=== PATIENT | female | born 1945 | race Caucasian/White ===

== ENCOUNTER 2017-03-12 17:34 | Emergency (ER) | payer MEDICARE ==
[2017-03-12 19:41] LABS: ADD MAN DIFF? NO
[2017-03-12 19:43] LABS: BASO # 0.1 x10^3/uL (0.0-0.2); BASO % 1 % (0-3); EOS % 1 % (0-3); HEMATOCRIT 44.6 % (36.0-47.0); LYMPH # 3.5 x10^3/uL (1.0-4.8); LYMPH % 24 % (24-48); MEAN CORPUSCULAR HEMOGLOBIN 30 pg (25-35); MEAN CORPUSCULAR HGB CONC 34 g/dL (31-37); MEAN CORPUSCULAR VOLUME 91 fL (79-100); MONO % 8 % (0-9); NEUT % 65 % (31-73); PLATELET COUNT 512 x10^3/uL (140-400); RED BLOOD COUNT 4.92 x10^6/uL (3.50-5.40); RED CELL DISTRIBUTION WIDTH 14.6 % (11.5-14.5); WHITE BLOOD COUNT 14.6 x10^3/uL (4.0-11.0)
[2017-03-12 20:05] LABS: BLOOD UREA NITROGEN 16 mg/dL (7-20); CALCIUM 9.3 mg/dL (8.5-10.1); GLUCOSE 116 mg/dL (70-99)
[2017-03-12 20:06] LABS: ANION GAP 16 (6-14); BUN/CREATININE RATIO 16 (6-20); CARBON DIOXIDE 29 mmol/L (21-32); CHLORIDE 98 mmol/L (98-107); GFR 54.3; POTASSIUM 3.2 mmol/L (3.5-5.1); SODIUM 143 mmol/L (136-145)
[2017-03-12 20:11] LABS: ALBUMIN 3.4 g/dL (3.4-5.0); ALBUMIN/GLOBULIN RATIO 0.7 (1.0-1.7); ALK PHOS 77 U/L (46-116); ALT (SGPT) 48 U/L (14-59); AST (SGOT) 67 U/L (15-37); MAGNESIUM 1.8 mg/dL (1.8-2.4); TOTAL BILIRUBIN 0.8 mg/dL (0.2-1.0)
[2017-03-12 20:17] LABS: TROPONINI < 0.017 ng/mL (0.000-0.055)
[2017-03-12 20:24] LABS: PLT ESTIMATE INCREASED (ADEQUATE)
== END 2017-03-12 21:05 | disposition home or self-care (01) ==
LOC: ER 17:34
DX: G45.9 Transient cerebral ischemic attack, unspecified (principal); I10 Essential (primary) hypertension; K21.9 Gastro-esophageal reflux disease without esophagitis; Z88.8 Allergy status to other drugs, medicaments and biological substances
CPT/HCPCS: 36415; 70450; 80053; 83735; 84484; 85025; 93005; 99285-25

== ENCOUNTER 2019-01-11 12:01 | Inpatient (IN) | payer MEDICARE ==
[~2019-01-11] VITALS: Ht 144.8 cm; Wt 68.0 kg
[~2019-01-11 12:01] MED LIST: ASPI-482 PO; ASPI325T8 PO; ATOR20TA PO; ATOR20TA58 PO; CEFU250T59 PO; CHOL10003 PO; CLOP75TA PO; CYAN-25 PO; FAMO40TA57 PO; FLUT9.9S NS; HYDR12.575 PO; LACT1CAP2 PO; LEVO500T59 PO; LORA0.5T PO; MELA3TAB56 PO; SERT25TA PO; SERT50TA PO
[2019-01-11] MEDS ORDERED: IV NORMAL SALINE 1000ML BAG 1,000 ML IV SCH (13:06)
[2019-01-11] MEDS ORDERED: ONDANSETRON PF 4 MG/2 ML VIAL. IV ONE (13:15)
[2019-01-11] MEDS ORDERED: fentaNYL PF VIAL 100 MCG/2 ML VIAL IV PRN (13:15)
[2019-01-11 13:56] LABS: BILIRUBIN,URINE SMALL (NEG); CLARITY,URINE CLEAR; COLOR,URINE AMBER; NITRITE,URINE NEGATIVE (NEG); PROTEIN,URINE NEGATIVE (NEG-TRACE)
--- NOTE | 2019-01-11 14:05 | RAD ---
CT ABDOMEN PELVIS WO CONTRAST History: Bilateral flank pain. Technique: Noncontrast examination of the abdomen and pelvis. Coronal and sagittal reconstructions were performed. Exposure: One or more of the following individualized dose reduction techniques were utilized for this examination: 1. Automated exposure control 2. Adjustment of the mA and/or kV according to patient size 3. Use of iterative reconstruction technique. Comparison: None Findings: Lower chest: No consolidation or pleural effusion. Abdomen and pelvis: The liver, spleen, and adrenal glands have normal noncontrast appearance. Right renal hypodensity, likely cyst. Right inferior renal cortical defect, may relate to prior infarct or infection. No hydronephrosis. Decreased attenuation of the regions of the pancreatic neck and body, may indicate edema. Minimal adjacent fat infiltration. No fluid collection. Colonic diverticulosis. No evidence of diverticulitis. Normal appendix. No evidence of bowel obstruction. No pathologic adenopathy. No ascites. Ectasia of the infrarenal abdominal aorta. No aneurysm. Atheromatous calcification. Bones: No pathologic osseous lesions. Multilevel lumbar spondylosis. Right renal hypodensity, likely cyst. Impression: 1. Hypoattenuation involving portions of the pancreatic neck and body, may indicate edema related to pancreatitis. Recommend correlation with lipase and follow-up. 2. Colonic diverticulosis. Electronically signed by: Artis Alvarez DO (01/11/2019 2:02 PM) [facility]
[2019-01-11 14:13] LABS: BACTERIA,URINE MANY /HPF (0-FEW); HYALINE CASTS, URINE MODERATE /HPF; RBC,URINE 0 /HPF (0-2); SQUAMOUS EPITHELIAL CELL,UR MOD /LPF; WBC,URINE >40 /HPF (0-4)
--- NOTE | 2019-01-11 14:16 | PHYS DOC ---
Past Medical History Past Medical History: Anxiety, CVA, Depression, GERD, Hypertension, TIA Past Surgical History: Cholecystectomy, Tubal ligation Alcohol Use: None Drug Use: None Adult General Chief Complaint Chief Complaint: FLANK PAIN HPI HPI Patient is a 73-year-old female who presents with complaint of lower back as well as bilateral flank pain. Patient has also been having an increase in weakness. Patient's daughter indicates that she has noticed that patient's urine has a very foul odor to it. She also indicates that patient's symptoms seem very consistent with when she has a urinary tract infection and is dehydrated. Patient's weakness is gotten to the point where she had fallen out of her wheelchair yesterday. She denies any injuries however. Patient denies any nausea or vomiting. She also denies any diarrhea.[] Review of Systems Review of Systems Constitutional: Denies fever or chills [] Respiratory: Denies cough or shortness of breath [] Cardiovascular: No additional information not addressed in HPI [] GI: Denies abdominal pain, nausea, vomiting or diarrhea [] : Denies dysuria or hematuria. Complains of bilateral flank pain [] Musculoskeletal: Complains of lower back pain [] Integument: Denies rash or skin lesions [] Neurologic: Denies headache, focal weakness or sensory changes [] All other systems were reviewed and found to be within normal limits, except as documented in this note. Current Medications Current Medications Current Medications Medications (Trade) Dose Ordered Sig/John Start Time Stop Time Status Last Admin Dose Admin Ceftriaxone Sodium (Rocephin) 1 gm 1X ONCE 01/11/19 15:00 01/11/19 15:01 DC 01/11/19 15:09 1 GM Fentanyl Citrate (Fentanyl 2ml Vial) 25 mcg PRN Q15MIN PRN 01/11/19 13:15 01/12/19 13:14 01/11/19 13:39 25 MCG Ondansetron HCl (Zofran) 4 mg 1X ONCE 01/11/19 13:15 01/11/19 13:16 DC 01/11/19 13:39 4 MG Sodium Chloride 1,000 ml @ 1,000 mls/hr Q1H 01/11/19 13:06 01/11/19 14:05 DC 01/11/19 13:40 1,000 MLS/HR Allergies Allergies Allergies Coded Allergies Type Severity Reaction Last Updated Verified zolpidem Allergy Intermediate 03/04/17 Yes I S O L A T I O N *CONTACT* Allergy Unknown 09/26/18 Yes Physical Exam Physical Exam Constitutional: Well developed, well nourished, no acute distress, non-toxic appearance. [] HENT: Normocephalic, atraumatic, bilateral external ears normal, oropharynx moist, no oral exudates, nose normal. [] Eyes: PERRLA, EOMI, conjunctiva normal, no discharge. [] Neck: Normal range of motion, no tenderness, supple, no stridor. [] Cardiovascular: Regular rate and rhythm[] Lungs & Thorax: Bilateral breath sounds clear to auscultation [] Abdomen: Bowel sounds normal, soft, with suprapubic tenderness. [] Skin: Warm, dry, no erythema, no rash. [] Extremities: No tenderness, no cyanosis, no clubbing, ROM intact. [] Neurologic: Alert and oriented X 3, no focal deficits noted. [] Current Patient Data Vital Signs Vital Signs Date Time Temp Pulse Resp B/P (MAP) Pulse Ox O2 Delivery O2 Flow Rate FiO2 01/11/19 14:30 62 16 160/93 (115) 96 Room Air 01/11/19 13:10 98.2 98.2 Lab Values Laboratory Tests Test 01/11/19 13:50 01/11/19 14:18 Urine Collection Type U cath Urine Color Jayne Urine Clarity Clear Urine pH 6.0 Urine Specific Hubbell 1.020 Urine Protein Negative mg/dL (NEG-TRACE) Urine Glucose (UA) Negative mg/dL (NEG) Urine Ketones (Stick) Negative mg/dL (NEG) Urine Blood Moderate (NEG) Urine Nitrite Negative (NEG) Urine Bilirubin Small (NEG) Urine Urobilinogen Dipstick 1.0 mg/dL (0.2 mg/dL) Urine Leukocyte Esterase Moderate (NEG) Urine RBC 0 /HPF (0-2) Urine WBC >40 /HPF (0-4) Urine Squamous Epithelial Cells Mod /LPF Urine Bacteria Many /HPF (0-FEW) Urine Hyaline Casts Moderate /HPF Urine Mucus Marked /LPF White Blood Count 14.4 x10^3/uL (4.0-11.0) H Red Blood Count 4.42 x10^6/uL (3.50-5.40) Hemoglobin 13.5 g/dL (12.0-15.5) Hematocrit 40.2 % (36.0-47.0) Mean Corpuscular Volume 91 fL (79-100) Mean Corpuscular Hemoglobin 31 pg (25-35) Mean Corpuscular Hemoglobin Concent 34 g/dL (31-37) Red Cell Distribution Width 14.0 % (11.5-14.5) Platelet Count 280 x10^3/uL (140-400) Neutrophils (%) (Auto) 68 % (31-73) Lymphocytes (%) (Auto) 23 % (24-48) L Monocytes (%) (Auto) 8 % (0-9) Eosinophils (%) (Auto) 1 % (0-3) Basophils (%) (Auto) 1 % (0-3) Neutrophils # (Auto) 9.8 x10^3/uL (1.8-7.7) H Lymphocytes # (Auto) 3.2 x10^3/uL (1.0-4.8) Monocytes # (Auto) 1.1 x10^3/uL (0.0-1.1) Eosinophils # (Auto) 0.2 x10^3/uL (0.0-0.7) Basophils # (Auto) 0.1 x10^3/uL (0.0-0.2) Sodium Level 142 mmol/L (136-145) Potassium Level 3.1 mmol/L (3.5-5.1) L Chloride Level 104 mmol/L (98-107) Carbon Dioxide Level 31 mmol/L (21-32) Anion Gap 7 (6-14) Blood Urea Nitrogen 10 mg/dL (7-20) Creatinine 0.8 mg/dL (0.6-1.0) Estimated GFR (Cockcroft-Gault) 70.1 BUN/Creatinine Ratio 13 (6-20) Glucose Level 90 mg/dL (70-99) Calcium Level 8.8 mg/dL (8.5-10.1) Total Bilirubin 0.9 mg/dL (0.2-1.0) Aspartate Amino Transferase (AST) 25 U/L (15-37) Alanine Aminotransferase (ALT) 8 U/L (14-59) L Alkaline Phosphatase 53 U/L (46-116) Total Protein 7.1 g/dL (6.4-8.2) Albumin 2.8 g/dL (3.4-5.0) L Albumin/Globulin Ratio 0.7 (1.0-1.7) L Lipase 43 U/L (73-393) L Laboratory Tests 01/11/19 14:18 Laboratory Tests 01/11/19 14:18 EKG EKG [] Radiology/Procedures Radiology/Procedures [] Impressions: PROCEDURE: CT ABDOMEN PELVIS WO CONTRAST CT ABDOMEN PELVIS WO CONTRAST History: Bilateral flank pain. Technique: Noncontrast examination of the abdomen and pelvis. Coronal and sagittal reconstructions were performed. Exposure: One or more of the following individualized dose reduction techniques were utilized for this examination: 1. Automated exposure control 2. Adjustment of the mA and/or kV according to patient size 3. Use of iterative reconstruction technique. Comparison: None Findings: Lower chest: No consolidation or pleural effusion. Abdomen and pelvis: The liver, spleen, and adrenal glands have normal noncontrast appearance. Right renal hypodensity, likely cyst. Right inferior renal cortical defect, may relate to prior infarct or infection. No hydronephrosis. Decreased attenuation of the regions of the pancreatic neck and body, may indicate edema. Minimal adjacent fat infiltration. No fluid collection. Colonic diverticulosis. No evidence of diverticulitis. Normal appendix. No evidence of bowel obstruction. No pathologic adenopathy. No ascites. Ectasia of the infrarenal abdominal aorta. No aneurysm. Atheromatous calcification. Bones: No pathologic osseous lesions. Multilevel lumbar spondylosis. Right renal hypodensity, likely cyst. Impression: 1. Hypoattenuation involving portions of the pancreatic neck and body, may indicate edema related to pancreatitis. Recommend correlation with lipase and follow-up. 2. Colonic diverticulosis. Electronically signed by: Artis Perera DO (01/11/2019 2:02 PM) [facility] DICTATED and SIGNED BY: ARTIS PERERA DO DATE: 01/11/19 140 Course & Med Decision Making Course & Med Decision Making Pertinent Labs and Imaging studies reviewed. (See chart for details) [] Dragon Disclaimer Dragon Disclaimer This electronic medical record was generated, in whole or in part, using a voice recognition dictation system. Departure Departure Impression: Primary Impression: UTI (urinary tract infection) Additional Impressions: Dehydration Generalized weakness Disposition: ADMITTED INPATIENT Admitting Physician: GUANACO ([facility]) Condition: IMPROVED Referrals: SHON PEREZ MD (PCP) Problem Qualifiers Primary Impression: UTI (urinary tract infection) Urinary tract infection type: site unspecified Hematuria presence: with hematuria Qualified Codes: N39.0 - Urinary tract infection, site not specified; R31.9 - Hematuria, unspecified SHANICE MONTAÑO Jr. DO Jan 11, 2019 14:16
[2019-01-11 14:33] LABS: BASO # 0.1 x10^3/uL (0.0-0.2); BASO % 1 % (0-3); EOS # 0.2 x10^3/uL (0.0-0.7); EOS % 1 % (0-3); HEMATOCRIT 40.2 % (36.0-47.0); HEMOGLOBIN 13.5 g/dL (12.0-15.5); LYMPH # 3.2 x10^3/uL (1.0-4.8); LYMPH % 23 % (24-48); MEAN CORPUSCULAR HEMOGLOBIN 31 pg (25-35); MEAN CORPUSCULAR HGB CONC 34 g/dL (31-37); MEAN CORPUSCULAR VOLUME 91 fL (79-100); MONO # 1.1 x10^3/uL (0.0-1.1); MONO % 8 % (0-9); NEUT # 9.8 x10^3/uL (1.8-7.7); NEUT % 68 % (31-73); PLATELET COUNT 280 x10^3/uL (140-400); RED BLOOD COUNT 4.42 x10^6/uL (3.50-5.40); WHITE BLOOD COUNT 14.4 x10^3/uL (4.0-11.0)
[2019-01-11 14:43] LABS: CALCIUM 8.8 mg/dL (8.5-10.1); CREATININE 0.8 mg/dL (0.6-1.0); GFR 70.1; POTASSIUM 3.1 mmol/L (3.5-5.1)
[2019-01-11 14:55] LABS: ALBUMIN 2.8 g/dL (3.4-5.0); ALBUMIN/GLOBULIN RATIO 0.7 (1.0-1.7); TOTAL BILIRUBIN 0.9 mg/dL (0.2-1.0); TOTAL PROTEIN 7.1 g/dL (6.4-8.2)
[2019-01-11] MEDS ORDERED: cefTRIAXone IV Push 1 GM VIAL. IVP ONE (15:00)
--- NOTE | 2019-01-11 15:21 | PDOC1 ---
History and Physical Date of Admission Date of Admission DATE: 01/11/19 TIME: 15:19 Identification/Chief Complaint Chief Complaint SEEN IN ER , 73-year-old female who presents with complaint of lower back as well as bilateral flank pain. Patient has also been having an increase in weakness. Patient's daughter indicates that she has noticed that patient's urine has a very foul odor to it. She also indicates that patient's symptoms seem very consistent with when she has a urinary tract infection and is dehydrated. Patient's weakness is gotten to the point where she had fall, noninjury , out of her wheelchair yesterday. STARTED ON IV ROCEPHIN IN ER, IV FLUIDS ORDERED/ PT/OT Past Medical History Past Medical History Past Medical History Past Medical History Past Medical History: Anxiety, CVA, Depression, GERD, Hypertension, TIA Past Surgical History: Cholecystectomy, Tubal ligation Alcohol Use: None Drug Use: None FHX OBESITY Cardiovascular: HTN, Hyperlipidemia Pulmonary: No pertinent hx CENTRAL NERVOUS SYSTEM: CVA, TIA GI: GERD Heme/Onc: No pertinent hx Hepatobiliary: No pertinent hx Psych: Anxiety, Depression Rheumatologic: No pertinent hx Infectious disease: No pertinent hx Renal/: UTI, Urinary Incontinence Endocrine: No pertinent hx Past Surgical History Past Surgical History: Cholecystectomy, Tubal Ligation Family History Family History: Hypertension, Other Social History Smoke: No ALCOHOL: none Drugs: None Current Medications Current Medications Current Medications Fentanyl Citrate (Fentanyl 2ml Vial) 25 mcg PRN Q15MIN PRN IV PAIN GREATER THAN 3/10 Last administered on 01/11/19at 13:39; Start 01/11/19 at 13:15; Stop 01/12/19 at 13:14 Sodium Chloride 1,000 ml @ 1,000 mls/hr Q1H IV Last administered on 01/11/19at 13:40; Start 01/11/19 at 13:06; Stop 01/11/19 at 14:05; Status DC Ondansetron HCl (Zofran) 4 mg 1X ONCE IV Last administered on 01/11/19at 13: 39; Start 01/11/19 at 13:15; Stop 01/11/19 at 13:16; Status DC Ceftriaxone Sodium (Rocephin) 1 gm 1X ONCE IVP Last administered on 01/11/19at 15:09; Start 01/11/19 at 15:00; Stop 01/11/19 at 15:01; Status DC Active Scripts Active Cefuroxime (Cefuroxime Axetil) 250 Mg Tablet 250 Mg PO 3X/WEEK 30 Days MWF weekly for UTI prevention Levaquin (Levofloxacin) 500 Mg Tablet 500 Mg PO Q24H 4 Days Lorazepam 0.5 Mg Tablet 1 Tab PO PRN QHS PRN 6 Days Pepcid (Famotidine) 40 Mg Tablet 40 Mg PO HS Aspirin 325 Mg Tablet 1 Tab PO DAILY Atorvastatin Calcium 20 Mg Tablet 20 Mg PO QHS Reported Zoloft (Sertraline Hcl) 50 Mg Tablet 1 Tab PO DAILY Acidophilus (Lactobacillus Acidophilus) 1 Each Capsule 1 Each PO DAILY Vitamin D3 (Cholecalciferol (Vitamin D3)) 1,000 Unit Tablet 2 Tab PO DAILY Vitamin B-12 (Cyanocobalamin (Vitamin B-12)) 1,000 Mcg Tablet 1 Tab PO DAILY Melatonin 3 Mg Tablet 1 Tab PO QHS Zoloft (Sertraline Hcl) 25 Mg Tablet 1 Tab PO DAILY Clopidogrel (Clopidogrel Bisulfate) 75 Mg Tablet 1 Tab PO DAILY Flonase Allergy Relief (Fluticasone Propionate) 9.9 Ml [place].susp 2 Sprays NS DAILY Allergies Allergies: Coded Allergies: zolpidem (Verified Allergy, Intermediate, 03/04/17) Odd behavior, confusion next day I S O L A T I O N *CONTACT* (Verified Allergy, Unknown, 09/26/18) mrsa ROS Review of System Review of Systems Review of Systems Constitutional: Denies fever or chills [] Respiratory: Denies cough or shortness of breath [] Cardiovascular: No additional information not addressed in HPI [] GI: Denies abdominal pain, nausea, vomiting or diarrhea [] : Denies dysuria or hematuria. Complains of bilateral flank pain [] Musculoskeletal: Complains of lower back pain [] Integument: Denies rash or skin lesions [] Neurologic: Denies headache, focal weakness or sensory changes [] 14 pt systems were reviewed and found to be within normal limits, except as documented Neurological: Yes Gait Disturbance Physical Exam Physical Exam Physical Exam Physical Exam Constitutional: Well developed, well nourished, no acute distress, non-toxic appearance. [] HENT: Normocephalic, atraumatic, bilateral external ears normal, oropharynx moist, no oral exudates, nose normal. [] Eyes: PERRLA, EOMI, conjunctiva normal, no discharge. [] Neck: Normal range of motion, no tenderness, supple, no stridor. [] Cardiovascular: Regular rate and rhythm[] Lungs & Thorax: Bilateral breath sounds clear to auscultation [] Abdomen: Bowel sounds normal, soft, with suprapubic tenderness. [] Skin: Warm, dry, no erythema, no rash. [] Extremities: No tenderness, no cyanosis, no clubbing, ROM intact. [] Neurologic: Alert and oriented X 3, no focal deficits noted. [] General: Alert, Oriented X3, Cooperative, No acute distress HEENT: Mucous membr. moist/pink Lungs: Clear to auscultation, Normal air movement Heart: RRR, no gallops Breasts: Not examined Abdomen: Soft Rectal Exam: not examined PELVIC: Examination not indicated Extremities: No cyanosis Neuro: Normal speech, Cranial nerves 3-12 NL Psych/Mental Status: Mental status NL, Mood NL Vitals Vitals Vital Signs Date Time Temp Pulse Resp B/P (MAP) Pulse Ox O2 Delivery O2 Flow Rate FiO2 01/11/19 14:30 62 16 160/93 (115) 96 Room Air 01/11/19 13:10 98.2 98.2 Labs Labs Laboratory Tests Test 01/11/19 13:50 01/11/19 14:18 Urine Collection Type U cath Urine Color Jayne Urine Clarity Clear Urine pH 6.0 Urine Specific Bivins 1.020 Urine Protein Negative mg/dL (NEG-TRACE) Urine Glucose (UA) Negative mg/dL (NEG) Urine Ketones (Stick) Negative mg/dL (NEG) Urine Blood Moderate (NEG) Urine Nitrite Negative (NEG) Urine Bilirubin Small (NEG) Urine Urobilinogen Dipstick 1.0 mg/dL (0.2 mg/dL) Urine Leukocyte Esterase Moderate (NEG) Urine RBC 0 /HPF (0-2) Urine WBC >40 /HPF (0-4) Urine Squamous Epithelial Cells Mod /LPF Urine Bacteria Many /HPF (0-FEW) Urine Hyaline Casts Moderate /HPF Urine Mucus Marked /LPF White Blood Count 14.4 x10^3/uL (4.0-11.0) Red Blood Count 4.42 x10^6/uL (3.50-5.40) Hemoglobin 13.5 g/dL (12.0-15.5) Hematocrit 40.2 % (36.0-47.0) Mean Corpuscular Volume 91 fL (79-100) Mean Corpuscular Hemoglobin 31 pg (25-35) Mean Corpuscular Hemoglobin Concent 34 g/dL (31-37) Red Cell Distribution Width 14.0 % (11.5-14.5) Platelet Count 280 x10^3/uL (140-400) Neutrophils (%) (Auto) 68 % (31-73) Lymphocytes (%) (Auto) 23 % (24-48) Monocytes (%) (Auto) 8 % (0-9) Eosinophils (%) (Auto) 1 % (0-3) Basophils (%) (Auto) 1 % (0-3) Neutrophils # (Auto) 9.8 x10^3/uL (1.8-7.7) Lymphocytes # (Auto) 3.2 x10^3/uL (1.0-4.8) Monocytes # (Auto) 1.1 x10^3/uL (0.0-1.1) Eosinophils # (Auto) 0.2 x10^3/uL (0.0-0.7) Basophils # (Auto) 0.1 x10^3/uL (0.0-0.2) Sodium Level 142 mmol/L (136-145) Potassium Level 3.1 mmol/L (3.5-5.1) Chloride Level 104 mmol/L (98-107) Carbon Dioxide Level 31 mmol/L (21-32) Anion Gap 7 (6-14) Blood Urea Nitrogen 10 mg/dL (7-20) Creatinine 0.8 mg/dL (0.6-1.0) Estimated GFR (Cockcroft-Gault) 70.1 BUN/Creatinine Ratio 13 (6-20) Glucose Level 90 mg/dL (70-99) Calcium Level 8.8 mg/dL (8.5-10.1) Total Bilirubin 0.9 mg/dL (0.2-1.0) Aspartate Amino Transf (AST/SGOT) 25 U/L (15-37) Alanine Aminotransferase (ALT/SGPT) 8 U/L (14-59) Alkaline Phosphatase 53 U/L (46-116) Total Protein 7.1 g/dL (6.4-8.2) Albumin 2.8 g/dL (3.4-5.0) Albumin/Globulin Ratio 0.7 (1.0-1.7) Lipase 43 U/L (73-393) Laboratory Tests Test 01/11/19 13:50 01/11/19 14:18 Urine Collection Type U cath Urine Color Jayne Urine Clarity Clear Urine pH 6.0 Urine Specific Bivins 1.020 Urine Protein Negative mg/dL (NEG-TRACE) Urine Glucose (UA) Negative mg/dL (NEG) Urine Ketones (Stick) Negative mg/dL (NEG) Urine Blood Moderate (NEG) Urine Nitrite Negative (NEG) Urine Bilirubin Small (NEG) Urine Urobilinogen Dipstick 1.0 mg/dL (0.2 mg/dL) Urine Leukocyte Esterase Moderate (NEG) Urine RBC 0 /HPF (0-2) Urine WBC >40 /HPF (0-4) Urine Squamous Epithelial Cells Mod /LPF Urine Bacteria Many /HPF (0-FEW) Urine Hyaline Casts Moderate /HPF Urine Mucus Marked /LPF White Blood Count 14.4 x10^3/uL (4.0-11.0) Red Blood Count 4.42 x10^6/uL (3.50-5.40) Hemoglobin 13.5 g/dL (12.0-15.5) Hematocrit 40.2 % (36.0-47.0) Mean Corpuscular Volume 91 fL (79-100) Mean Corpuscular Hemoglobin 31 pg (25-35) Mean Corpuscular Hemoglobin Concent 34 g/dL (31-37) Red Cell Distribution Width 14.0 % (11.5-14.5) Platelet Count 280 x10^3/uL (140-400) Neutrophils (%) (Auto) 68 % (31-73) Lymphocytes (%) (Auto) 23 % (24-48) Monocytes (%) (Auto) 8 % (0-9) Eosinophils (%) (Auto) 1 % (0-3) Basophils (%) (Auto) 1 % (0-3) Neutrophils # (Auto) 9.8 x10^3/uL (1.8-7.7) Lymphocytes # (Auto) 3.2 x10^3/uL (1.0-4.8) Monocytes # (Auto) 1.1 x10^3/uL (0.0-1.1) Eosinophils # (Auto) 0.2 x10^3/uL (0.0-0.7) Basophils # (Auto) 0.1 x10^3/uL (0.0-0.2) Sodium Level 142 mmol/L (136-145) Potassium Level 3.1 mmol/L (3.5-5.1) Chloride Level 104 mmol/L (98-107) Carbon Dioxide Level 31 mmol/L (21-32) Anion Gap 7 (6-14) Blood Urea Nitrogen 10 mg/dL (7-20) Creatinine 0.8 mg/dL (0.6-1.0) Estimated GFR (Cockcroft-Gault) 70.1 BUN/Creatinine Ratio 13 (6-20) Glucose Level 90 mg/dL (70-99) Calcium Level 8.8 mg/dL (8.5-10.1) Total Bilirubin 0.9 mg/dL (0.2-1.0) Aspartate Amino Transf (AST/SGOT) 25 U/L (15-37) Alanine Aminotransferase (ALT/SGPT) 8 U/L (14-59) Alkaline Phosphatase 53 U/L (46-116) Total Protein 7.1 g/dL (6.4-8.2) Albumin 2.8 g/dL (3.4-5.0) Albumin/Globulin Ratio 0.7 (1.0-1.7) Lipase 43 U/L (73-393) Images Images CT ABDOMEN PELVIS WO CONTRAST History: Bilateral flank pain. Technique: Noncontrast examination of the abdomen and pelvis. Coronal and sagittal reconstructions were performed. Exposure: One or more of the following individualized dose reduction techniques were utilized for this examination: 1. Automated exposure control 2. Adjustment of the mA and/or kV according to patient size 3. Use of iterative reconstruction technique. Comparison: None Findings: Lower chest: No consolidation or pleural effusion. Abdomen and pelvis: The liver, spleen, and adrenal glands have normal noncontrast appearance. Right renal hypodensity, likely cyst. Right inferior renal cortical defect, may relate to prior infarct or infection. No hydronephrosis. Decreased attenuation of the regions of the pancreatic neck and body, may indicate edema. Minimal adjacent fat infiltration. No fluid collection. Colonic diverticulosis. No evidence of diverticulitis. Normal appendix. No evidence of bowel obstruction. No pathologic adenopathy. No ascites. Ectasia of the infrarenal abdominal aorta. No aneurysm. Atheromatous calcification. Bones: No pathologic osseous lesions. Multilevel lumbar spondylosis. Right renal hypodensity, likely cyst. Impression: 1. Hypoattenuation involving portions of the pancreatic neck and body, may indicate edema related to pancreatitis. Recommend correlation with lipase and follow-up. 2. Colonic diverticulosis. Electronically signed by: Zack Perera DO (01/11/2019 2:02 PM) [id number] DICTATED and SIGNED BY: ZACK PERERA DO DATE: 01/11/19 1402 VTE Prophylaxis Ordered VTE Prophylaxis Devices: Yes VTE Pharmacological Prophylaxi: Yes Assessment/Plan Assessment/Plan IMPRESSION UTI DEHYDRATION Colonic diverticulosis. Acute metabolic encephalopathy Extensive suspected remote ischemic changes are identified within bilateral posterior MCA territories as well as the left medial occipital lobe. 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
[2019-01-11] MEDS ORDERED: ALBUTEROL SULFATE 2.5 MG/3 ML NEBU. NEB PRN (16:00)
[2019-01-11] MEDS ORDERED: LORazepam 0.5 MG TABLET PO PRN ×2 (16:00)
[2019-01-11] MEDS ORDERED: MAG HYDROX/ALUMINUM HYD/SIMETH 30 ML ORAL.SUSP PO PRN (16:00)
[2019-01-11] MEDS ORDERED: ACETAMINOPHEN 650 MG/20.3 ML SOLUTION. GT PRN (16:00)
[2019-01-11] MEDS ORDERED: cloNIDine HCL 0.1 MG TABLET PO PRN (16:00)
[2019-01-11] MEDS ORDERED: DOCUSATE SODIUM 100 MG CAPSULE. PO PRN (16:00)
[2019-01-11] MEDS: IV NORMAL SALINE 1000ML BAG 1,000 ML IV SCH ×2 (16:30→17:53)
[2019-01-11] MEDS ORDERED: POTASSIUM CHLORIDE 20 MEQ TABLET.ER. PO ONE (16:30)
[2019-01-11 17:20] VITALS: BP 159/72
[2019-01-11] MEDS: MEROPENEM 500 MG in IV NORMAL SALINE 50ML 50 ML IV SCH ×2 (17:55→21:07)
[2019-01-11 19:20] VITALS: BP 130/76
[2019-01-11] MEDS ORDERED: OMEP20TA8 PO (20:21)
[2019-01-11] MEDS ORDERED: PRAV10TA2 PO (20:21)
[2019-01-11] MEDS ORDERED: folic acid (20:21)
[2019-01-11] MEDS ORDERED: BUSP5TAB PO (20:21)
[2019-01-11] MEDS ORDERED: FAMOTIDINE 20 MG TABLET. PO SCH (21:00)
[2019-01-11] MEDS ORDERED: NON FORMULARY ITEM (Melatonin 1 TAB) PO SCH (21:00)
[2019-01-11] MEDS: ATORVASTATIN CALCIUM 20 MG TABLET PO SCH (21:06)
[2019-01-11] MEDS: LACTOBACILLUS RHAMNOSUS GG 1 CAPSULE. PO SCH (21:06)
[2019-01-11 23:27] VITALS: BP_SYST 134; BP_SYST 144; BP_DIAS 63; BP_DIAS 95
[2019-01-12] MEDS: IV NORMAL SALINE 1000ML BAG 1,000 ML IV SCH ×3 (02:45→08:58)
[2019-01-12 03:23] VITALS: BP 130/61
[2019-01-12 04:23] LABS: BASO % 1 % (0-3); EOS # 0.7 x10^3/uL (0.0-0.7); EOS % 7 % (0-3); HEMATOCRIT 38.4 % (36.0-47.0); HEMOGLOBIN 12.7 g/dL (12.0-15.5); LYMPH # 2.9 x10^3/uL (1.0-4.8); LYMPH % 28 % (24-48); MEAN CORPUSCULAR HEMOGLOBIN 31 pg (25-35); MEAN CORPUSCULAR HGB CONC 33 g/dL (31-37); MEAN CORPUSCULAR VOLUME 92 fL (79-100); MONO % 9 % (0-9); NEUT # 5.7 x10^3/uL (1.8-7.7); NEUT % 56 % (31-73); PLATELET COUNT 267 x10^3/uL (140-400); RED BLOOD COUNT 4.17 x10^6/uL (3.50-5.40); WHITE BLOOD COUNT 10.3 x10^3/uL (4.0-11.0)
[2019-01-12 05:07] LABS: CALCIUM 8.6 mg/dL (8.5-10.1); CREATININE 0.8 mg/dL (0.6-1.0); GFR 70.1; POTASSIUM 3.9 mmol/L (3.5-5.1)
[2019-01-12] MEDS: MEROPENEM 500 MG in IV NORMAL SALINE 50ML 50 ML IV SCH ×4 (05:08→21:19)
[2019-01-12 07:00] VITALS: BP 129/55
[2019-01-12] MEDS ORDERED: MORPHINE SULFATE 2 MG/ML VIAL. IV PRN (08:15)
[2019-01-12] MEDS ORDERED: ONDANSETRON PF 4 MG/2 ML VIAL. IVP PRN (08:15)
[2019-01-12] MEDS ORDERED: TEMAZEPAM 7.5 MG CAPSULE PO PRN (08:15)
[2019-01-12] MEDS ORDERED: ACETAMINOPHEN 500 MG TABLET PO PRN (08:15)
[2019-01-12] MEDS: LACTOBACILLUS RHAMNOSUS GG 1 CAPSULE. PO SCH ×2 (08:53→21:16)
[2019-01-12] MEDS: busPIRone 5 MG TABLET. PO SCH ×2 (08:53→21:16)
[2019-01-12] MEDS: FOLIC ACID 1 MG TABLET. PO SCH (08:53)
[2019-01-12] MEDS: CLOPIDOGREL BISULFATE 75 MG TABLET PO SCH (08:54)
[2019-01-12] MEDS: POTASSIUM CHLORIDE 20 MEQ TABLET.ER. PO SCH (08:54)
[2019-01-12] MEDS: ACETAMINOPHEN/CODEINE 300/30MG TABLET. PO PRN ×2 (08:55→16:32)
[2019-01-12] MEDS: CYANOCOBALAMIN (VITAMIN B-12) 1,000 MCG TABLET. PO SCH (08:55)
[2019-01-12] MEDS: PANTOPRAZOLE 40 MG TABLET.DR. PO SCH (08:55)
[2019-01-12] MEDS: CHOLECALCIFEROL (VITAMIN D3) 1,000 UNIT TABLET PO SCH (08:56)
[2019-01-12] MEDS: ASPIRIN 325 MG TABLET PO SCH (08:56)
[2019-01-12] MEDS: SERTRALINE 50 MG TABLET. PO SCH (08:56)
[2019-01-12] MEDS: FLUTICASONE 50MCG/NASAL SPRAY 16GM BOTTLE. NS SCH (08:57)
[2019-01-12] MEDS: ENOXAPARIN 40 MG/0.4 ML SYRINGE. SQ SCH (08:58)
[2019-01-12] MEDS ORDERED: PRAVASTATIN SODIUM 5 MG PO SCH (09:00)
--- NOTE | 2019-01-12 10:41 | PDOC ---
Infectious Disease Note Vital Sign Vital Signs Vital Signs Date Time Temp Pulse Resp B/P (MAP) Pulse Ox O2 Delivery O2 Flow Rate FiO2 01/12/19 08:55 93 Room Air 01/12/19 07:00 97.9 66 18 129/55 (79) 97.9 Labs Lab Laboratory Tests Test 01/11/19 13:50 01/11/19 14:18 01/12/19 02:45 Urine Collection Type U cath Urine Color Jayne Urine Clarity Clear Urine pH 6.0 Urine Specific [place] 1.020 Urine Protein Negative mg/dL (NEG-TRACE) Urine Glucose (UA) Negative mg/dL (NEG) Urine Ketones (Stick) Negative mg/dL (NEG) Urine Blood Moderate (NEG) Urine Nitrite Negative (NEG) Urine Bilirubin Small (NEG) Urine Urobilinogen Dipstick 1.0 mg/dL (0.2 mg/dL) Urine Leukocyte Esterase Moderate (NEG) Urine RBC 0 /HPF (0-2) Urine WBC >40 /HPF (0-4) Urine Squamous Epithelial Cells Mod /LPF Urine Bacteria Many /HPF (0-FEW) Urine Hyaline Casts Moderate /HPF Urine Mucus Marked /LPF White Blood Count 14.4 x10^3/uL (4.0-11.0) 10.3 x10^3/uL (4.0-11.0) Red Blood Count 4.42 x10^6/uL (3.50-5.40) 4.17 x10^6/uL (3.50-5.40) Hemoglobin 13.5 g/dL (12.0-15.5) 12.7 g/dL (12.0-15.5) Hematocrit 40.2 % (36.0-47.0) 38.4 % (36.0-47.0) Mean Corpuscular Volume 91 fL (79-100) 92 fL (79-100) Mean Corpuscular Hemoglobin 31 pg (25-35) 31 pg (25-35) Mean Corpuscular Hemoglobin Concent 34 g/dL (31-37) 33 g/dL (31-37) Red Cell Distribution Width 14.0 % (11.5-14.5) 14.0 % (11.5-14.5) Platelet Count 280 x10^3/uL (140-400) 267 x10^3/uL (140-400) Neutrophils (%) (Auto) 68 % (31-73) 56 % (31-73) Lymphocytes (%) (Auto) 23 % (24-48) 28 % (24-48) Monocytes (%) (Auto) 8 % (0-9) 9 % (0-9) Eosinophils (%) (Auto) 1 % (0-3) 7 % (0-3) Basophils (%) (Auto) 1 % (0-3) 1 % (0-3) Neutrophils # (Auto) 9.8 x10^3/uL (1.8-7.7) 5.7 x10^3/uL (1.8-7.7) Lymphocytes # (Auto) 3.2 x10^3/uL (1.0-4.8) 2.9 x10^3/uL (1.0-4.8) Monocytes # (Auto) 1.1 x10^3/uL (0.0-1.1) 1.0 x10^3/uL (0.0-1.1) Eosinophils # (Auto) 0.2 x10^3/uL (0.0-0.7) 0.7 x10^3/uL (0.0-0.7) Basophils # (Auto) 0.1 x10^3/uL (0.0-0.2) 0.0 x10^3/uL (0.0-0.2) Sodium Level 142 mmol/L (136-145) 146 mmol/L (136-145) Potassium Level 3.1 mmol/L (3.5-5.1) 3.9 mmol/L (3.5-5.1) Chloride Level 104 mmol/L (98-107) 110 mmol/L (98-107) Carbon Dioxide Level 31 mmol/L (21-32) 27 mmol/L (21-32) Anion Gap 7 (6-14) 9 (6-14) Blood Urea Nitrogen 10 mg/dL (7-20) 10 mg/dL (7-20) Creatinine 0.8 mg/dL (0.6-1.0) 0.8 mg/dL (0.6-1.0) Estimated GFR (Cockcroft-Gault) 70.1 70.1 BUN/Creatinine Ratio 13 (6-20) Glucose Level 90 mg/dL (70-99) 90 mg/dL (70-99) Calcium Level 8.8 mg/dL (8.5-10.1) 8.6 mg/dL (8.5-10.1) Total Bilirubin 0.9 mg/dL (0.2-1.0) Aspartate Amino Transf (AST/SGOT) 25 U/L (15-37) Alanine Aminotransferase (ALT/SGPT) 8 U/L (14-59) Alkaline Phosphatase 53 U/L (46-116) Total Protein 7.1 g/dL (6.4-8.2) Albumin 2.8 g/dL (3.4-5.0) Albumin/Globulin Ratio 0.7 (1.0-1.7) Lipase 43 U/L (73-393) Objective Assessment UTI - POA 01/11 - h/o MDR in September recent Cipro Leukocytosis - better HTN H/o MRSA H/o CVA Plan Plan of Care Cont Meropenem but to q 6 F/u labs and cults May benefit from topical vaginal estrogen Would benefit from outpatient Urology rola D/w daughter Thank you # [phone] ESTUARDO CONTI MD Jan 12, 2019 10:41
--- NOTE | 2019-01-12 10:44 | PDOC ---
PROGRESS NOTES Chief Complaint Chief Complaint Recuurent UTI ( ec yany) Urinary retention, in high likelihood Colonic diverticulosis. Acute metabolic encephalopathy, in the background of UTI< resolved POA Extensive suspected remote ischemic changes are identified within bilateral posterior MCA territories as well as the left medial occipital lobe. 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 marco a heard of daily suppressive doses abx but not 3x.week PT OT Ok to eat LIpase normal - CT mentions atrophied pancreas she looks good BLADDER SCAN PROTOCOL - retention likely culprit for her freq uti's (she doesnt self cath) Vitals Vitals Vital Signs Date Time Temp Pulse Resp B/P (MAP) Pulse Ox O2 Delivery O2 Flow Rate FiO2 01/12/19 10:04 93 Room Air 01/12/19 07:00 97.9 66 18 129/55 (79) 97.9 Physical Exam General: Alert, Oriented X3, Cooperative, No acute distress Heart: Regular rate, Normal S1, Normal S2, No murmurs Lungs: Clear Abdomen: Normal bowel sounds, Soft, No tenderness Extremities: No clubbing, No cyanosis, No edema Skin: No rashes, No breakdown, No significant lesion Labs LABS Laboratory Tests Test 01/11/19 13:50 01/11/19 14:18 01/12/19 02:45 Urine Collection Type U cath Urine Color Jayne Urine Clarity Clear Urine pH 6.0 Urine Specific [place] 1.020 Urine Protein Negative mg/dL (NEG-TRACE) Urine Glucose (UA) Negative mg/dL (NEG) Urine Ketones (Stick) Negative mg/dL (NEG) Urine Blood Moderate (NEG) Urine Nitrite Negative (NEG) Urine Bilirubin Small (NEG) Urine Urobilinogen Dipstick 1.0 mg/dL (0.2 mg/dL) Urine Leukocyte Esterase Moderate (NEG) Urine RBC 0 /HPF (0-2) Urine WBC >40 /HPF (0-4) Urine Squamous Epithelial Cells Mod /LPF Urine Bacteria Many /HPF (0-FEW) Urine Hyaline Casts Moderate /HPF Urine Mucus Marked /LPF White Blood Count 14.4 x10^3/uL (4.0-11.0) 10.3 x10^3/uL (4.0-11.0) Red Blood Count 4.42 x10^6/uL (3.50-5.40) 4.17 x10^6/uL (3.50-5.40) Hemoglobin 13.5 g/dL (12.0-15.5) 12.7 g/dL (12.0-15.5) Hematocrit 40.2 % (36.0-47.0) 38.4 % (36.0-47.0) Mean Corpuscular Volume 91 fL (79-100) 92 fL (79-100) Mean Corpuscular Hemoglobin 31 pg (25-35) 31 pg (25-35) Mean Corpuscular Hemoglobin Concent 34 g/dL (31-37) 33 g/dL (31-37) Red Cell Distribution Width 14.0 % (11.5-14.5) 14.0 % (11.5-14.5) Platelet Count 280 x10^3/uL (140-400) 267 x10^3/uL (140-400) Neutrophils (%) (Auto) 68 % (31-73) 56 % (31-73) Lymphocytes (%) (Auto) 23 % (24-48) 28 % (24-48) Monocytes (%) (Auto) 8 % (0-9) 9 % (0-9) Eosinophils (%) (Auto) 1 % (0-3) 7 % (0-3) Basophils (%) (Auto) 1 % (0-3) 1 % (0-3) Neutrophils # (Auto) 9.8 x10^3/uL (1.8-7.7) 5.7 x10^3/uL (1.8-7.7) Lymphocytes # (Auto) 3.2 x10^3/uL (1.0-4.8) 2.9 x10^3/uL (1.0-4.8) Monocytes # (Auto) 1.1 x10^3/uL (0.0-1.1) 1.0 x10^3/uL (0.0-1.1) Eosinophils # (Auto) 0.2 x10^3/uL (0.0-0.7) 0.7 x10^3/uL (0.0-0.7) Basophils # (Auto) 0.1 x10^3/uL (0.0-0.2) 0.0 x10^3/uL (0.0-0.2) Sodium Level 142 mmol/L (136-145) 146 mmol/L (136-145) Potassium Level 3.1 mmol/L (3.5-5.1) 3.9 mmol/L (3.5-5.1) Chloride Level 104 mmol/L (98-107) 110 mmol/L (98-107) Carbon Dioxide Level 31 mmol/L (21-32) 27 mmol/L (21-32) Anion Gap 7 (6-14) 9 (6-14) Blood Urea Nitrogen 10 mg/dL (7-20) 10 mg/dL (7-20) Creatinine 0.8 mg/dL (0.6-1.0) 0.8 mg/dL (0.6-1.0) Estimated GFR (Cockcroft-Gault) 70.1 70.1 BUN/Creatinine Ratio 13 (6-20) Glucose Level 90 mg/dL (70-99) 90 mg/dL (70-99) Calcium Level 8.8 mg/dL (8.5-10.1) 8.6 mg/dL (8.5-10.1) Total Bilirubin 0.9 mg/dL (0.2-1.0) Aspartate Amino Transf (AST/SGOT) 25 U/L (15-37) Alanine Aminotransferase (ALT/SGPT) 8 U/L (14-59) Alkaline Phosphatase 53 U/L (46-116) Total Protein 7.1 g/dL (6.4-8.2) Albumin 2.8 g/dL (3.4-5.0) Albumin/Globulin Ratio 0.7 (1.0-1.7) Lipase 43 U/L (73-393) Review of Systems Review of Systems neg 14 pt reviewed with her Assessment and Plan Assessmemt and Plan Problems Medical Problems: (1) Dehydration Status: Acute (2) Generalized weakness Status: Acute Comment Review of Relevant I have reviewed the following items eryn (where applicable) has been applied. Labs Laboratory Tests Test 01/11/19 13:50 01/11/19 14:18 01/12/19 02:45 Urine Collection Type U cath Urine Color Jayne Urine Clarity Clear Urine pH 6.0 Urine Specific [place] 1.020 Urine Protein Negative mg/dL (NEG-TRACE) Urine Glucose (UA) Negative mg/dL (NEG) Urine Ketones (Stick) Negative mg/dL (NEG) Urine Blood Moderate (NEG) Urine Nitrite Negative (NEG) Urine Bilirubin Small (NEG) Urine Urobilinogen Dipstick 1.0 mg/dL (0.2 mg/dL) Urine Leukocyte Esterase Moderate (NEG) Urine RBC 0 /HPF (0-2) Urine WBC >40 /HPF (0-4) Urine Squamous Epithelial Cells Mod /LPF Urine Bacteria Many /HPF (0-FEW) Urine Hyaline Casts Moderate /HPF Urine Mucus Marked /LPF White Blood Count 14.4 x10^3/uL (4.0-11.0) 10.3 x10^3/uL (4.0-11.0) Red Blood Count 4.42 x10^6/uL (3.50-5.40) 4.17 x10^6/uL (3.50-5.40) Hemoglobin 13.5 g/dL (12.0-15.5) 12.7 g/dL (12.0-15.5) Hematocrit 40.2 % (36.0-47.0) 38.4 % (36.0-47.0) Mean Corpuscular Volume 91 fL (79-100) 92 fL (79-100) Mean Corpuscular Hemoglobin 31 pg (25-35) 31 pg (25-35) Mean Corpuscular Hemoglobin Concent 34 g/dL (31-37) 33 g/dL (31-37) Red Cell Distribution Width 14.0 % (11.5-14.5) 14.0 % (11.5-14.5) Platelet Count 280 x10^3/uL (140-400) 267 x10^3/uL (140-400) Neutrophils (%) (Auto) 68 % (31-73) 56 % (31-73) Lymphocytes (%) (Auto) 23 % (24-48) 28 % (24-48) Monocytes (%) (Auto) 8 % (0-9) 9 % (0-9) Eosinophils (%) (Auto) 1 % (0-3) 7 % (0-3) Basophils (%) (Auto) 1 % (0-3) 1 % (0-3) Neutrophils # (Auto) 9.8 x10^3/uL (1.8-7.7) 5.7 x10^3/uL (1.8-7.7) Lymphocytes # (Auto) 3.2 x10^3/uL (1.0-4.8) 2.9 x10^3/uL (1.0-4.8) Monocytes # (Auto) 1.1 x10^3/uL (0.0-1.1) 1.0 x10^3/uL (0.0-1.1) Eosinophils # (Auto) 0.2 x10^3/uL (0.0-0.7) 0.7 x10^3/uL (0.0-0.7) Basophils # (Auto) 0.1 x10^3/uL (0.0-0.2) 0.0 x10^3/uL (0.0-0.2) Sodium Level 142 mmol/L (136-145) 146 mmol/L (136-145) Potassium Level 3.1 mmol/L (3.5-5.1) 3.9 mmol/L (3.5-5.1) Chloride Level 104 mmol/L (98-107) 110 mmol/L (98-107) Carbon Dioxide Level 31 mmol/L (21-32) 27 mmol/L (21-32) Anion Gap 7 (6-14) 9 (6-14) Blood Urea Nitrogen 10 mg/dL (7-20) 10 mg/dL (7-20) Creatinine 0.8 mg/dL (0.6-1.0) 0.8 mg/dL (0.6-1.0) Estimated GFR (Cockcroft-Gault) 70.1 70.1 BUN/Creatinine Ratio 13 (6-20) Glucose Level 90 mg/dL (70-99) 90 mg/dL (70-99) Calcium Level 8.8 mg/dL (8.5-10.1) 8.6 mg/dL (8.5-10.1) Total Bilirubin 0.9 mg/dL (0.2-1.0) Aspartate Amino Transf (AST/SGOT) 25 U/L (15-37) Alanine Aminotransferase (ALT/SGPT) 8 U/L (14-59) Alkaline Phosphatase 53 U/L (46-116) Total Protein 7.1 g/dL (6.4-8.2) Albumin 2.8 g/dL (3.4-5.0) Albumin/Globulin Ratio 0.7 (1.0-1.7) Lipase 43 U/L (73-393) Laboratory Tests Test 01/11/19 13:50 01/11/19 14:18 01/12/19 02:45 Urine Collection Type U cath Urine Color Jayne Urine Clarity Clear Urine pH 6.0 Urine Specific [place] 1.020 Urine Protein Negative mg/dL (NEG-TRACE) Urine Glucose (UA) Negative mg/dL (NEG) Urine Ketones (Stick) Negative mg/dL (NEG) Urine Blood Moderate (NEG) Urine Nitrite Negative (NEG) Urine Bilirubin Small (NEG) Urine Urobilinogen Dipstick 1.0 mg/dL (0.2 mg/dL) Urine Leukocyte Esterase Moderate (NEG) Urine RBC 0 /HPF (0-2) Urine WBC >40 /HPF (0-4) Urine Squamous Epithelial Cells Mod /LPF Urine Bacteria Many /HPF (0-FEW) Urine Hyaline Casts Moderate /HPF Urine Mucus Marked /LPF White Blood Count 14.4 x10^3/uL (4.0-11.0) 10.3 x10^3/uL (4.0-11.0) Red Blood Count 4.42 x10^6/uL (3.50-5.40) 4.17 x10^6/uL (3.50-5.40) Hemoglobin 13.5 g/dL (12.0-15.5) 12.7 g/dL (12.0-15.5) Hematocrit 40.2 % (36.0-47.0) 38.4 % (36.0-47.0) Mean Corpuscular Volume 91 fL (79-100) 92 fL (79-100) Mean Corpuscular Hemoglobin 31 pg (25-35) 31 pg (25-35) Mean Corpuscular Hemoglobin Concent 34 g/dL (31-37) 33 g/dL (31-37) Red Cell Distribution Width 14.0 % (11.5-14.5) 14.0 % (11.5-14.5) Platelet Count 280 x10^3/uL (140-400) 267 x10^3/uL (140-400) Neutrophils (%) (Auto) 68 % (31-73) 56 % (31-73) Lymphocytes (%) (Auto) 23 % (24-48) 28 % (24-48) Monocytes (%) (Auto) 8 % (0-9) 9 % (0-9) Eosinophils (%) (Auto) 1 % (0-3) 7 % (0-3) Basophils (%) (Auto) 1 % (0-3) 1 % (0-3) Neutrophils # (Auto) 9.8 x10^3/uL (1.8-7.7) 5.7 x10^3/uL (1.8-7.7) Lymphocytes # (Auto) 3.2 x10^3/uL (1.0-4.8) 2.9 x10^3/uL (1.0-4.8) Monocytes # (Auto) 1.1 x10^3/uL (0.0-1.1) 1.0 x10^3/uL (0.0-1.1) Eosinophils # (Auto) 0.2 x10^3/uL (0.0-0.7) 0.7 x10^3/uL (0.0-0.7) Basophils # (Auto) 0.1 x10^3/uL (0.0-0.2) 0.0 x10^3/uL (0.0-0.2) Sodium Level 142 mmol/L (136-145) 146 mmol/L (136-145) Potassium Level 3.1 mmol/L (3.5-5.1) 3.9 mmol/L (3.5-5.1) Chloride Level 104 mmol/L (98-107) 110 mmol/L (98-107) Carbon Dioxide Level 31 mmol/L (21-32) 27 mmol/L (21-32) Anion Gap 7 (6-14) 9 (6-14) Blood Urea Nitrogen 10 mg/dL (7-20) 10 mg/dL (7-20) Creatinine 0.8 mg/dL (0.6-1.0) 0.8 mg/dL (0.6-1.0) Estimated GFR (Cockcroft-Gault) 70.1 70.1 BUN/Creatinine Ratio 13 (6-20) Glucose Level 90 mg/dL (70-99) 90 mg/dL (70-99) Calcium Level 8.8 mg/dL (8.5-10.1) 8.6 mg/dL (8.5-10.1) Total Bilirubin 0.9 mg/dL (0.2-1.0) Aspartate Amino Transf (AST/SGOT) 25 U/L (15-37) Alanine Aminotransferase (ALT/SGPT) 8 U/L (14-59) Alkaline Phosphatase 53 U/L (46-116) Total Protein 7.1 g/dL (6.4-8.2) Albumin 2.8 g/dL (3.4-5.0) Albumin/Globulin Ratio 0.7 (1.0-1.7) Lipase 43 U/L (73-393) Medications Current Medications Fentanyl Citrate (Fentanyl 2ml Vial) 25 mcg PRN Q15MIN PRN IV PAIN GREATER THAN 3/10 Last administered on 01/11/19at 13:39; Start 01/11/19 at 13:15; Stop at 10:40; Status DC Sodium Chloride 1,000 ml @ 1,000 mls/hr Q1H IV Last administered on 01/11/19at 13:40; Start 01/11/19 at 13:06; Stop 01/11/19 at 14:05; Status DC Ondansetron HCl (Zofran) 4 mg 1X ONCE IV Last administered on 01/11/19at 13:3 9; Start 01/11/19 at 13:15; Stop 01/11/19 at 13:16; Status DC Ceftriaxone Sodium (Rocephin) 1 gm 1X ONCE IVP Last administered on 01/11/19at 15:09; Start 01/11/19 at 15:00; Stop 01/11/19 at 15:01; Status DC Sodium Chloride 1,000 ml @ 125 mls/hr Q8H IV Last administered on 01/12/19at 08:58; Start 01/11/19 at 15:24; Stop 01/12/19 at 15:23 Ceftriaxone Sodium (Rocephin) 1 gm Q24H IVP ; Start 01/12/19 at 15:00; Stop 01/11/19 at 16:05; Status DC Potassium Chloride (Klor-Con) 40 meq 1X ONCE PO Last administered on 01/11/19at 16:29; Start 01/11/19 at 16:30; Stop 01/11/19 at 16:31; Status DC Potassium Chloride (Klor-Con) 20 meq DAILYWBKFT PO Last administered on 01/12/19at 08:54; Start 01/12/19 at 08:00 Sodium Chloride 1,000 ml @ 100 mls/hr Q10H IV Last administered on 01/12/19at 02:45; Start 01/11/19 at 16:30 Acetaminophen (Tylenol) 650 mg PRN Q4HRS PRN GT TEMP OVER 100.4F OR MILD PAIN; Start 01/11/19 at 16:00 Al Hydroxide/Mg Hydroxide (Mylanta Plus Xs) 30 ml PRN DAILY PRN PO HEARTBURN / GAS; Start 01/11/19 at 16:00 Clonidine HCl (Catapres) 0.1 mg PRN Q6HRS PRN PO SBP>160 OR DBP>90; Start 01/11/19 at 16:00 Docusate Sodium (Colace) 100 mg PRN BID PRN PO CONSTIPATION; Start 01/11/19 at 16:00 Albuterol Sulfate (Ventolin Neb Soln) 2.5 mg PRN Q4HRS PRN NEB SHORTNESS OF BREATH; Start 01/11/19 at 16:00 Lorazepam (Ativan) 0.5 mg PRN Q4HRS PRN PO ANXIETY / AGITATION; Start 01/11/19 at 16:00 Enoxaparin Sodium (Lovenox 40mg Syringe) 40 mg DAILY SQ Last administered on 01/12/19at 08:58; Start 01/12/19 at 09:00 Aspirin (Thu Aspirin) 325 mg DAILY PO Last administered on 01/12/19at 08:56; Start 01/12/19 at 09:00 Atorvastatin Calcium (Lipitor) 20 mg QHS PO Last administered on 01/11/19at 21:06; Start 01/11/19 at 21:00 Vitamin D (Vitamin D3) 2,000 unit DAILY PO Last administered on 01/12/19at 08:56; Start 01/12/19 at 09:00 Clopidogrel Bisulfate (Plavix) 75 mg DAILY PO Last administered on 01/12/19 08:54; Start 01/12/19 at 09:00 Cyanocobalamin (Vitamin B-12) 1,000 mcg DAILY PO Last administered on 01/12/19 08:55; Start 01/12/19 at 09:00 Lorazepam (Ativan) 0.5 mg PRN QHS PRN PO ANXIETY / AGITATION; Start 01/11/19 at 16:00 Sertraline HCl (Zoloft) 50 mg DAILY PO Last administered on 01/12/19 08:56; Start 01/12/19 at 09:00 Famotidine (Pepcid) 20 mg QHS PO Last administered on 01/11/19at 21:06; Start 01/11/19 at 21:00; Stop 01/12/19 at 08:14; Status DC Fluticasone Propionate (Flonase) 2 spray DAILY NS Last administered on 01/12/19 08:57; Start 01/12/19 at 09:00 Lactobacillus Rhamnosus (Culturelle) 1 cap BID PO Last administered on 01/12/19 08:53; Start 01/11/19 at 21:00 Non-Formulary Medication (Melatonin ) 1 tab QHS PO ; Start 01/11/19 at 21:00; Status UNV Meropenem 500 mg/ Sodium Chloride 50 ml @ 100 mls/hr Q8HRS IV Last administered on 01/12/19at 05:08; Start 01/11/19 at 17:00 Acetaminophen (Tylenol) 500 mg PRN Q6HRS PRN PO HEADACHE/ TEMP; Start 01/12/19 at 08:15 Acetaminophen/ Codeine Phosphate (Tylenol #3) 1 tab PRN Q6HRS PRN PO PAIN MILD TO MOD Last administered on 01/12/19at 08:55; Start 01/12/19 at 08:15 Temazepam (Restoril) 7.5 mg PRN QHS PRN PO INSOMNIA; Start 01/12/19 at 08:15 Ondansetron HCl (Zofran) 4 mg PRN Q6HRS PRN IVP NAUSEA/VOMITING; Start 01/12/19 at 08:15 Morphine Sulfate (Morphine Sulfate) 1 mg PRN Q2HR PRN IV PAIN; Start 01/12/19 at 08:15 Buspirone HCl (Buspar) 5 mg BID PO Last administered on 01/12/19at 08:53; St art 01/12/19 at 09:00 Pantoprazole Sodium (Protonix) 40 mg DAILYAC PO Last administered on 01/12/19at 08:55; Start 01/12/19 at 09:00 Non-Formulary Medication (Pravastatin Sodium ) 5 mg DAILY PO ; Start 01/12/19 at 09:00; Stop 01/12/19 at 08:13; Status DC Folic Acid (Folic Acid) 1 mg DAILY PO Last administered on 01/12/19at 08:53; Start 01/12/19 at 09:00 Active Scripts Active Cefuroxime (Cefuroxime Axetil) 250 Mg Tablet 250 Mg PO 3X/WEEK 30 Days MWF weekly for UTI prevention Aspirin 325 Mg Tablet 1 Tab PO DAILY Reported Pravastatin Sodium 10 Mg Tablet 5 Mg PO DAILY Omeprazole 20 Mg Tablet.dr 1 Tab PO DAILY [folic acid] 1 Mg DAILY Buspirone Hcl 5 Mg Tablet 1 Tab PO BID Acidophilus (Lactobacillus Acidophilus) 1 Each Capsule 1 Each PO DAILY Vitamin D3 (Cholecalciferol (Vitamin D3)) 1,000 Unit Tablet 2 Tab PO DAILY Vitamin B-12 (Cyanocobalamin (Vitamin B-12)) 1,000 Mcg Tablet 1 Tab PO DAILY Melatonin 3 Mg Tablet 1 Tab PO QHS Zoloft (Sertraline Hcl) 25 Mg Tablet 1 Tab PO DAILY Clopidogrel (Clopidogrel Bisulfate) 75 Mg Tablet 1 Tab PO DAILY Vitals/I & O Vital Sign - Last 24 Hours 01/11/19 01/11/19 01/11/19 01/11/19 13:00 13:10 13:39 14:30 Temp 98.2 98.2 Pulse 72 72 62 Resp 16 16 14 16 B/P (MAP) 189/89 (122) 189/89 (122) 160/93 (115) Pulse Ox 93 93 96 96 O2 Delivery Room Air Room Air Room Air Room Air 01/11/19 01/11/19 01/11/19 01/11/19 15:06 15:36 16:06 16:36 Pulse 62 62 64 61 Resp 16 16 16 16 B/P (MAP) 135/65 (88) 141/74 (96) 160/92 (114) 142/106 (118) Pulse Ox 91 93 93 93 O2 Delivery Room Air Room Air Room Air Room Air 01/11/19 01/11/19 01/11/19 01/11/19 17:20 19:20 19:55 23:27 Temp 97.7 98.5 98.3 97.7 98.5 98.3 Pulse 65 66 70 Resp 18 18 18 B/P (MAP) 159/72 (101) 130/76 (94) 134/63 (86) Pulse Ox 98 95 96 O2 Delivery Room Air Room Air Room Air Room Air 01/12/19 01/12/19 01/12/19 01/12/19 03:23 07:00 07:57 08:55 Temp 98.5 97.9 98.5 97.9 Pulse 68 66 Resp 18 18 B/P (MAP) 130/61 (84) 129/55 (79) Pulse Ox 93 97 93 O2 Delivery Room Air Room Air Room Air Room Air 01/12/19 10:04 Pulse Ox 93 O2 Delivery Room Air l Intake and Output 01/11/19 01/11/19 01/12/19 15:00 23:00 07:00 Intake Total 480 ml Balance 480 ml TRINA GREEN MD Jan 12, 2019 10:44
[2019-01-12 11:00] VITALS: BP 116/64
--- NOTE | 2019-01-12 12:08 | CONS ---
DATE OF CONSULTATION: 01/12/2019 LOCATION: The patient's room is 412. REQUESTING PHYSICIAN: Dr. Rivera. REASON FOR CONSULTATION: History of drug resistant UTI. HISTORY OF PRESENT ILLNESS: The patient is a 73-year-old female with a history of previous stroke. Also, has had recurrent urinary tract infections. Back in September she grew out both Proteus as well as an Enterobacter and was fairly resistant. She does live by herself. Daughter states she went to see her primary care physician a week or two ago and was diagnosed with a UTI at that point and was taking ciprofloxacin what they believe. Last Saturday, she was doing well without any complications; however, while at home, she developed some low back pain, which has been chronic in nature, but it does worsen when she gets urinary tract infection. She had increasing weakness to the point where she had a difficulty getting off the couch and subsequently kind of slipped down to the floor. She was brought to [facility] Urine was noted to have a foul, strong odor. She did have a white blood cell count of 14.4 on arrival. Urinalysis was concerning for urinary tract infection. She underwent an abdominal CT as well as pelvis without contrast, it showed some hypoattenuation involving portions of the pancreatic neck; however, she had normal lipase and she also has some colonic diverticulosis. She was given a dose of ceftriaxone, but this was discontinued and she was started on meropenem q. 8 hours. Currently, the patient is sitting in a chair. She is feeling better. She denies having any fevers or chills or sweats. No nausea or vomiting prior to her admission. Currently, she has no shortness of air, no chest pain. No rashes. Denies any trauma. PAST MEDICAL HISTORY: Positive for previous urinary tract infections, also has a history of MRSA screen positivity, history of hypertension, hyperlipidemia, TIA, gastroesophageal reflux disease. PAST SURGICAL HISTORY: Positive for cataract surgery, cholecystectomy, tubal ligation, carpal tunnel release, pulmonary nodule, history of obesity, previous aphasia. REVIEW OF SYSTEMS: Otherwise negative. ALLERGIES: LISTED IN CHART. REVIEW OF SYSTEMS: Otherwise negative. SOCIAL HISTORY: She is . No pets. No alcohol or tobacco. Does have a very supportive family. FAMILY HISTORY: Noncontributory. CURRENT MEDICATIONS: Include meropenem q. 8. She is on albuterol, aspirin, Lipitor, BuSpar, did get the Rocephin. She is on Plavix, Pepcid, Lovenox, folic acid, Zoloft, Restoril. Other meds are available, have been reviewed in the chart. PHYSICAL EXAMINATION: VITAL SIGNS: She is afebrile, temperature 98.5, pulse 66, respirations 18, blood pressure 130/76, blood pressure was as high as 189/89. CONSTITUTIONAL: She is sitting in a chair. She is cooperative. She is in no acute distress. HEENT: Pupils are status post cataract surgery. Oral cavity, pharynx is dry. NECK: Supple. Good range of motion. LUNGS: Clear to auscultation. HEART: S1, S2. ABDOMEN: Soft, nontender, no guarding, no rebound. EXTREMITIES: Without clubbing, cyanosis nor edema. NEUROLOGIC: She answers questions. PSYCHIATRIC: Affect is pleasant. LABORATORY DATA: White count 14.4 on arrival, today 10.3, hemoglobin 12.7, platelets of 267, neutrophils 56, lymphs 28. Creatinine of 0.8. Normal liver function study tests. Urinalysis is concerning for urinary tract infection. Radiology reviewed in history of present illness. IMPRESSION: 1. Urinary tract infection present on admission with a history of multiple drug resistance, bacteria in her urine previously. 2. Leukocytosis, better. 3. Hypertension. 4. History of methicillin-resistant Staphylococcus aureus. 5. History of cerebrovascular accident. RECOMMENDATIONS: For now, continue meropenem, but increase to 500 q. 6. Follow up labs and cultures. May benefit from topical vaginal estrogens and would benefit from outpatient Urology evaluation. This was discussed with daughter. Thank you to participate in patient's care. If you have any questions, please do not hesitate to contact me. ESTUARDO CONTI MD DR: GINI/nithya JOB#: [id number] / [id number] GUDELIA
--- NOTE | 2019-01-12 12:57 | NUR ---
SW following for discharge planning. Chart reviewed, discussed with RN. Pt is on Meropenem currently. PT/OT recommending home with home health. SW to meet with pt to discuss home health options. RN does not anticipate pt will discharge home today. SW will continue to follow.
--- NOTE | 2019-01-12 13:17 | NUR ---
IP: patient has hx of +MRSA screen, requires contact precautions until 2 negative results 7 days apart.
[2019-01-12 15:00] VITALS: BP 118/39
[2019-01-12] MEDS ORDERED: cefTRIAXone IV Push 1 GM VIAL. IVP SCH (15:00)
[2019-01-12 19:00] VITALS: BP 105/61
[2019-01-12] MEDS: ATORVASTATIN CALCIUM 20 MG TABLET PO SCH (21:16)
[2019-01-12 23:00] VITALS: BP 166/75
[2019-01-13 03:29] VITALS: BP 111/51
[2019-01-13 04:00] LABS: BASO # 0.1 x10^3/uL (0.0-0.2); BASO % 1 % (0-3); EOS # 0.7 x10^3/uL (0.0-0.7); EOS % 7 % (0-3); HEMATOCRIT 35.5 % (36.0-47.0); HEMOGLOBIN 11.9 g/dL (12.0-15.5); LYMPH # 2.7 x10^3/uL (1.0-4.8); LYMPH % 27 % (24-48); MEAN CORPUSCULAR HEMOGLOBIN 31 pg (25-35); MEAN CORPUSCULAR HGB CONC 34 g/dL (31-37); MEAN CORPUSCULAR VOLUME 91 fL (79-100); MONO # 0.8 x10^3/uL (0.0-1.1); MONO % 8 % (0-9); NEUT # 5.6 x10^3/uL (1.8-7.7); NEUT % 56 % (31-73); PLATELET COUNT 272 x10^3/uL (140-400); RED BLOOD COUNT 3.89 x10^6/uL (3.50-5.40); WHITE BLOOD COUNT 9.9 x10^3/uL (4.0-11.0)
[2019-01-13 04:09] LABS: CALCIUM 8.7 mg/dL (8.5-10.1); CREATININE 0.8 mg/dL (0.6-1.0); GFR 70.1; POTASSIUM 3.7 mmol/L (3.5-5.1)
[2019-01-13] MEDS: MEROPENEM 500 MG in IV NORMAL SALINE 50ML 50 ML IV SCH ×5 (05:58→23:30)
[2019-01-13 07:00] VITALS: BP 121/64
[2019-01-13] MEDS: LACTOBACILLUS RHAMNOSUS GG 1 CAPSULE. PO SCH ×2 (08:08→21:20)
[2019-01-13] MEDS: CYANOCOBALAMIN (VITAMIN B-12) 1,000 MCG TABLET. PO SCH (08:08)
[2019-01-13] MEDS: POTASSIUM CHLORIDE 20 MEQ TABLET.ER. PO SCH (08:08)
[2019-01-13] MEDS: busPIRone 5 MG TABLET. PO SCH ×2 (08:08→21:20)
[2019-01-13] MEDS: CHOLECALCIFEROL (VITAMIN D3) 1,000 UNIT TABLET PO SCH (08:08)
[2019-01-13] MEDS: PANTOPRAZOLE 40 MG TABLET.DR. PO SCH (08:09)
[2019-01-13] MEDS: ASPIRIN 325 MG TABLET PO SCH (08:09)
[2019-01-13] MEDS: FOLIC ACID 1 MG TABLET. PO SCH (08:09)
[2019-01-13] MEDS: CLOPIDOGREL BISULFATE 75 MG TABLET PO SCH (08:09)
[2019-01-13] MEDS: SERTRALINE 50 MG TABLET. PO SCH (08:09)
[2019-01-13] MEDS: ENOXAPARIN 40 MG/0.4 ML SYRINGE. SQ SCH (08:09)
[2019-01-13] MEDS: FLUTICASONE 50MCG/NASAL SPRAY 16GM BOTTLE. NS SCH (08:09)
--- NOTE | 2019-01-13 09:40 | PDOC ---
PROGRESS NOTES Chief Complaint Chief Complaint Recuurent UTI ( ec yany) Urinary retention, in high likelihood Colonic diverticulosis. Acute metabolic encephalopathy, in the background of UTI< resolved POA Extensive suspected remote ischemic changes are identified within bilateral posterior MCA territories as well as the left medial occipital lobe. 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 OBESITY hypokalemia- replaced History of Present Illness History of Present Illness ID HAS INCREASED FREQ OF MERREM TO q6 FROM Q8 NO complaints, she is back to baseline with mentation AGreeable only to existing HH VOding freely - on bladder scan protocol Earlier Entry: BAck to normal in [place] Dtr at bedside, relays to me pt was put on 3x/week suppressive abx by colleague for recurrent UTI UTI on UA Multiple episodes UTI in a yr ATe well, PLAN merrem q6 AWAIT URINE C and S PT OT existing HH on dc Ok to eat LIpase normal - CT mentions atrophied pancreas she looks good BLADDER SCAN PROTOCOL - retention likely culprit for her freq uti's (she doesnt self cath) Vitals Vitals Vital Signs Date Time Temp Pulse Resp B/P (MAP) Pulse Ox O2 Delivery O2 Flow Rate FiO2 01/13/19 07:00 97.9 66 18 121/64 (83) 97 Room Air 97.9 Physical Exam General: Alert, Oriented X3, Cooperative, No acute distress Heart: Regular rate, Normal S1, Normal S2, No murmurs Lungs: Clear Abdomen: Normal bowel sounds, Soft, No tenderness Extremities: No clubbing, No cyanosis, No edema Skin: No rashes, No breakdown, No significant lesion Labs LABS Laboratory Tests Test 01/13/19 03:30 White Blood Count 9.9 x10^3/uL (4.0-11.0) Red Blood Count 3.89 x10^6/uL (3.50-5.40) Hemoglobin 11.9 g/dL (12.0-15.5) Hematocrit 35.5 % (36.0-47.0) Mean Corpuscular Volume 91 fL (79-100) Mean Corpuscular Hemoglobin 31 pg (25-35) Mean Corpuscular Hemoglobin Concent 34 g/dL (31-37) Red Cell Distribution Width 14.0 % (11.5-14.5) Platelet Count 272 x10^3/uL (140-400) Neutrophils (%) (Auto) 56 % (31-73) Lymphocytes (%) (Auto) 27 % (24-48) Monocytes (%) (Auto) 8 % (0-9) Eosinophils (%) (Auto) 7 % (0-3) Basophils (%) (Auto) 1 % (0-3) Neutrophils # (Auto) 5.6 x10^3/uL (1.8-7.7) Lymphocytes # (Auto) 2.7 x10^3/uL (1.0-4.8) Monocytes # (Auto) 0.8 x10^3/uL (0.0-1.1) Eosinophils # (Auto) 0.7 x10^3/uL (0.0-0.7) Basophils # (Auto) 0.1 x10^3/uL (0.0-0.2) Sodium Level 144 mmol/L (136-145) Potassium Level 3.7 mmol/L (3.5-5.1) Chloride Level 108 mmol/L (98-107) Carbon Dioxide Level 28 mmol/L (21-32) Anion Gap 8 (6-14) Blood Urea Nitrogen 10 mg/dL (7-20) Creatinine 0.8 mg/dL (0.6-1.0) Estimated GFR (Cockcroft-Gault) 70.1 Glucose Level 101 mg/dL (70-99) Calcium Level 8.7 mg/dL (8.5-10.1) Review of Systems Review of Systems she denies 14 pt reviewed with her Assessment and Plan Assessmemt and Plan Problems Medical Problems: (1) Dehydration Status: Acute (2) Generalized weakness Status: Acute Comment Review of Relevant I have reviewed the following items eryn (where applicable) has been applied. Labs Laboratory Tests Test 01/11/19 13:50 01/11/19 14:18 01/11/19 23:00 01/12/19 02:45 Urine Collection Type U cath Urine Color Jayne Urine Clarity Clear Urine pH 6.0 Urine Specific [place] 1.020 Urine Protein Negative mg/dL (NEG-TRACE) Urine Glucose (UA) Negative mg/dL (NEG) Urine Ketones (Stick) Negative mg/dL (NEG) Urine Blood Moderate (NEG) Urine Nitrite Negative (NEG) Urine Bilirubin Small (NEG) Urine Urobilinogen Dipstick 1.0 mg/dL (0.2 mg/dL) Urine Leukocyte Esterase Moderate (NEG) Urine RBC 0 /HPF (0-2) Urine WBC >40 /HPF (0-4) Urine Squamous Epithelial Cells Mod /LPF Urine Bacteria Many /HPF (0-FEW) Urine Hyaline Casts Moderate /HPF Urine Mucus Marked /LPF White Blood Count 14.4 x10^3/uL (4.0-11.0) 10.3 x10^3/uL (4.0-11.0) Red Blood Count 4.42 x10^6/uL (3.50-5.40) 4.17 x10^6/uL (3.50-5.40) Hemoglobin 13.5 g/dL (12.0-15.5) 12.7 g/dL (12.0-15.5) Hematocrit 40.2 % (36.0-47.0) 38.4 % (36.0-47.0) Mean Corpuscular Volume 91 fL (79-100) 92 fL (79-100) Mean Corpuscular Hemoglobin 31 pg (25-35) 31 pg (25-35) Mean Corpuscular Hemoglobin Concent 34 g/dL (31-37) 33 g/dL (31-37) Red Cell Distribution Width 14.0 % (11.5-14.5) 14.0 % (11.5-14.5) Platelet Count 280 x10^3/uL (140-400) 267 x10^3/uL (140-400) Neutrophils (%) (Auto) 68 % (31-73) 56 % (31-73) Lymphocytes (%) (Auto) 23 % (24-48) 28 % (24-48) Monocytes (%) (Auto) 8 % (0-9) 9 % (0-9) Eosinophils (%) (Auto) 1 % (0-3) 7 % (0-3) Basophils (%) (Auto) 1 % (0-3) 1 % (0-3) Neutrophils # (Auto) 9.8 x10^3/uL (1.8-7.7) 5.7 x10^3/uL (1.8-7.7) Lymphocytes # (Auto) 3.2 x10^3/uL (1.0-4.8) 2.9 x10^3/uL (1.0-4.8) Monocytes # (Auto) 1.1 x10^3/uL (0.0-1.1) 1.0 x10^3/uL (0.0-1.1) Eosinophils # (Auto) 0.2 x10^3/uL (0.0-0.7) 0.7 x10^3/uL (0.0-0.7) Basophils # (Auto) 0.1 x10^3/uL (0.0-0.2) 0.0 x10^3/uL (0.0-0.2) Sodium Level 142 mmol/L (136-145) 146 mmol/L (136-145) Potassium Level 3.1 mmol/L (3.5-5.1) 3.9 mmol/L (3.5-5.1) Chloride Level 104 mmol/L (98-107) 110 mmol/L (98-107) Carbon Dioxide Level 31 mmol/L (21-32) 27 mmol/L (21-32) Anion Gap 7 (6-14) 9 (6-14) Blood Urea Nitrogen 10 mg/dL (7-20) 10 mg/dL (7-20) Creatinine 0.8 mg/dL (0.6-1.0) 0.8 mg/dL (0.6-1.0) Estimated GFR (Cockcroft-Gault) 70.1 70.1 BUN/Creatinine Ratio 13 (6-20) Glucose Level 90 mg/dL (70-99) 90 mg/dL (70-99) Calcium Level 8.8 mg/dL (8.5-10.1) 8.6 mg/dL (8.5-10.1) Total Bilirubin 0.9 mg/dL (0.2-1.0) Aspartate Amino Transf (AST/SGOT) 25 U/L (15-37) Alanine Aminotransferase (ALT/SGPT) 8 U/L (14-59) Alkaline Phosphatase 53 U/L (46-116) Total Protein 7.1 g/dL (6.4-8.2) Albumin 2.8 g/dL (3.4-5.0) Albumin/Globulin Ratio 0.7 (1.0-1.7) Lipase 43 U/L (73-393) Nasal Screen MRSA (PCR) Negative (Negative) Test 01/13/19 03:30 White Blood Count 9.9 x10^3/uL (4.0-11.0) Red Blood Count 3.89 x10^6/uL (3.50-5.40) Hemoglobin 11.9 g/dL (12.0-15.5) Hematocrit 35.5 % (36.0-47.0) Mean Corpuscular Volume 91 fL (79-100) Mean Corpuscular Hemoglobin 31 pg (25-35) Mean Corpuscular Hemoglobin Concent 34 g/dL (31-37) Red Cell Distribution Width 14.0 % (11.5-14.5) Platelet Count 272 x10^3/uL (140-400) Neutrophils (%) (Auto) 56 % (31-73) Lymphocytes (%) (Auto) 27 % (24-48) Monocytes (%) (Auto) 8 % (0-9) Eosinophils (%) (Auto) 7 % (0-3) Basophils (%) (Auto) 1 % (0-3) Neutrophils # (Auto) 5.6 x10^3/uL (1.8-7.7) Lymphocytes # (Auto) 2.7 x10^3/uL (1.0-4.8) Monocytes # (Auto) 0.8 x10^3/uL (0.0-1.1) Eosinophils # (Auto) 0.7 x10^3/uL (0.0-0.7) Basophils # (Auto) 0.1 x10^3/uL (0.0-0.2) Sodium Level 144 mmol/L (136-145) Potassium Level 3.7 mmol/L (3.5-5.1) Chloride Level 108 mmol/L (98-107) Carbon Dioxide Level 28 mmol/L (21-32) Anion Gap 8 (6-14) Blood Urea Nitrogen 10 mg/dL (7-20) Creatinine 0.8 mg/dL (0.6-1.0) Estimated GFR (Cockcroft-Gault) 70.1 Glucose Level 101 mg/dL (70-99) Calcium Level 8.7 mg/dL (8.5-10.1) Laboratory Tests Test 01/13/19 03:30 White Blood Count 9.9 x10^3/uL (4.0-11.0) Red Blood Count 3.89 x10^6/uL (3.50-5.40) Hemoglobin 11.9 g/dL (12.0-15.5) Hematocrit 35.5 % (36.0-47.0) Mean Corpuscular Volume 91 fL (79-100) Mean Corpuscular Hemoglobin 31 pg (25-35) Mean Corpuscular Hemoglobin Concent 34 g/dL (31-37) Red Cell Distribution Width 14.0 % (11.5-14.5) Platelet Count 272 x10^3/uL (140-400) Neutrophils (%) (Auto) 56 % (31-73) Lymphocytes (%) (Auto) 27 % (24-48) Monocytes (%) (Auto) 8 % (0-9) Eosinophils (%) (Auto) 7 % (0-3) Basophils (%) (Auto) 1 % (0-3) Neutrophils # (Auto) 5.6 x10^3/uL (1.8-7.7) Lymphocytes # (Auto) 2.7 x10^3/uL (1.0-4.8) Monocytes # (Auto) 0.8 x10^3/uL (0.0-1.1) Eosinophils # (Auto) 0.7 x10^3/uL (0.0-0.7) Basophils # (Auto) 0.1 x10^3/uL (0.0-0.2) Sodium Level 144 mmol/L (136-145) Potassium Level 3.7 mmol/L (3.5-5.1) Chloride Level 108 mmol/L (98-107) Carbon Dioxide Level 28 mmol/L (21-32) Anion Gap 8 (6-14) Blood Urea Nitrogen 10 mg/dL (7-20) Creatinine 0.8 mg/dL (0.6-1.0) Estimated GFR (Cockcroft-Gault) 70.1 Glucose Level 101 mg/dL (70-99) Calcium Level 8.7 mg/dL (8.5-10.1) Microbiology 01/11/19 Blood Culture - Preliminary, Resulted NO GROWTH AFTER 1 DAY Medications Current Medications Fentanyl Citrate (Fentanyl 2ml Vial) 25 mcg PRN Q15MIN PRN IV PAIN GREATER THAN 3/10 Last administered on 01/11/19at 13:39; Start 01/11/19 at 13:15; Stop 01/12/19 at 10:40; Status DC Sodium Chloride 1,000 ml @ 1,000 mls/hr Q1H IV Last administered on 01/11/19at 13:40; Start 01/11/19 at 13:06; Stop 01/11/19 at 14:05; Status DC Ondansetron HCl (Zofran) 4 mg 1X ONCE IV Last administered on 01/11/19at 13:39; Start 01/11/19 at 13:15; Stop 01/11/19 at 13:16; Status DC Ceftriaxone Sodium (Rocephin) 1 gm 1X ONCE IVP Last administered on 01/11/19at 15:09; Start 01/11/19 at 15:00; Stop 01/11/19 at 15:01; Status DC Sodium Chloride 1,000 ml @ 125 mls/hr Q8H IV Last administered on 01/12/19at 08:58; Start 01/11/19 at 15:24; Stop 01/12/19 at 10:40; Status DC Ceftriaxone Sodium (Rocephin) 1 gm Q24H IVP ; Start 01/12/19 at 15:00; Stop 01/11/19 at 16:05; Status DC Potassium Chloride (Klor-Con) 40 meq 1X ONCE PO Last administered on 01/11/19at 16:29; Start 01/11/19 at 16:30; Stop 01/11/19 at 16:31; Status DC Potassium Chloride (Klor-Con) 20 meq DAILYWBKFT PO Last administered on 01/13/19at 08:08; Start 01/12/19 at 08:00 Sodium Chloride 1,000 ml @ 100 mls/hr Q10H IV Last administered on 01/12/19at 02:45; Start 01/11/19 at 16:30; Stop 01/12/19 at 10:51; Status DC Acetaminophen (Tylenol) 650 mg PRN Q4HRS PRN GT TEMP OVER 100.4F OR MILD PAIN; Start 01/11/19 at 16:00 Al Hydroxide/Mg Hydroxide (Mylanta Plus Xs) 30 ml PRN DAILY PRN PO HEARTBURN / GAS; Start 01/11/19 at 16:00 Clonidine HCl (Catapres) 0.1 mg PRN Q6HRS PRN PO SBP>160 OR DBP>90; Start 01/11/19 at 16:00 Docusate Sodium (Colace) 100 mg PRN BID PRN PO CONSTIPATION; Start 01/11/19 at 16:00 Albuterol Sulfate (Ventolin Neb Soln) 2.5 mg PRN Q4HRS PRN NEB SHORTNESS OF BREATH; Start 01/11/19 at 16:00 Lorazepam (Ativan) 0.5 mg PRN Q4HRS PRN PO ANXIETY / AGITATION; Start 01/11/19 at 16:00 Enoxaparin Sodium (Lovenox 40mg Syringe) 40 mg DAILY SQ Last administered on 01/13/19 08:09; Start 01/12/19 at 09:00 Aspirin (Thu Aspirin) 325 mg DAILY PO Last administered on 01/13/19at 08:09; Start 01/12/19 at 09:00 Atorvastatin Calcium (Lipitor) 20 mg QHS PO Last administered on 01/12/19at 21:16; Start 01/11/19 at 21:00 Vitamin D (Vitamin D3) 2,000 unit DAILY PO Last administered on 01/13/19at 08:08; Start 01/12/19 at 09:00 Clopidogrel Bisulfate (Plavix) 75 mg DAILY PO Last administered on 01/13/19at 08:09; Start 01/12/19 at 09:00 Cyanocobalamin (Vitamin B-12) 1,000 mcg DAILY PO Last administered on 01/13/19at 08:08; Start 01/12/19 at 09:00 Lorazepam (Ativan) 0.5 mg PRN QHS PRN PO ANXIETY / AGITATION; Start 01/11/19 at 16:00; Stop 01/12/19 at 10:46; Status DC Sertraline HCl (Zoloft) 50 mg DAILY PO Last administered on 01/13/19at 08:09; Start 01/12/19 at 09:00 Famotidine (Pepcid) 20 mg QHS PO Last administered on 01/11/19at 21:06; Start 01/11/19 at 21:00; Stop 01/12/19 at 08:14; Status DC Fluticasone Propionate (Flonase) 2 spray DAILY NS Last administered on 01/13/19 08:09; Start 01/12/19 at 09:00 Lactobacillus Rhamnosus (Culturelle) 1 cap BID PO Last administered on 01/13/19at 08:08; Start 01/11/19 at 21:00 Non-Formulary Medication (Melatonin ) 1 tab QHS PO ; Start 01/11/19 at 21:00; Status UNV Meropenem 500 mg/ Sodium Chloride 50 ml @ 100 mls/hr Q8HRS IV Last administered on 01/12/19at 05:08; Start 01/11/19 at 17:00; Stop 01/12/19 at 10:42; Status DC Acetaminophen (Tylenol) 500 mg PRN Q6HRS PRN PO HEADACHE/ TEMP; Start 01/12/19 at 08:15 Acetaminophen/ Codeine Phosphate (Tylenol #3) 1 tab PRN Q6HRS PRN PO PAIN MILD TO MOD Last administered on 01/12/19at 16:32; Start 01/12/19 at 08:15 Temazepam (Restoril) 7.5 mg PRN QHS PRN PO INSOMNIA; Start 01/12/19 at 08:15 Ondansetron HCl (Zofran) 4 mg PRN Q6HRS PRN IVP NAUSEA/VOMITING; Start 01/12/19 at 08:15 Morphine Sulfate (Morphine Sulfate) 1 mg PRN Q2HR PRN IV PAIN; Start 01/12/19 at 08:15 Buspirone HCl (Buspar) 5 mg BID PO Last administered on 01/13/19at 08:08; Start 01/12/19 at 09:00 Pantoprazole Sodium (Protonix) 40 mg DAILYAC PO Last administered on 01/13/19at 08:09; Start 01/12/19 at 09:00 Non-Formulary Medication (Pravastatin Sodium ) 5 mg DAILY PO ; Start 01/12/19 at 09:00; Stop 01/12/19 at 08:13; Status DC Folic Acid (Folic Acid) 1 mg DAILY PO Last administered on 01/13/19at 08:09; Start 01/12/19 at 09:00 Meropenem 500 mg/ Sodium Chloride 50 ml @ 100 mls/hr Q6HRS IV Last administered on 01/13/19at 05:58; Start 01/12/19 at 12:00 Active Scripts Active Cefuroxime (Cefuroxime Axetil) 250 Mg Tablet 250 Mg PO 3X/WEEK 30 Days MWF weekly for UTI prevention Aspirin 325 Mg Tablet 1 Tab PO DAILY Reported Pravastatin Sodium 10 Mg Tablet 5 Mg PO DAILY Omeprazole 20 Mg Tablet.dr 1 Tab PO DAILY [folic acid] 1 Mg DAILY Buspirone Hcl 5 Mg Tablet 1 Tab PO BID Acidophilus (Lactobacillus Acidophilus) 1 Each Capsule 1 Each PO DAILY Vitamin D3 (Cholecalciferol (Vitamin D3)) 1,000 Unit Tablet 2 Tab PO DAILY Vitamin B-12 (Cyanocobalamin (Vitamin B-12)) 1,000 Mcg Tablet 1 Tab PO DAILY Melatonin 3 Mg Tablet 1 Tab PO QHS Zoloft (Sertraline Hcl) 25 Mg Tablet 1 Tab PO DAILY Clopidogrel (Clopidogrel Bisulfate) 75 Mg Tablet 1 Tab PO DAILY Vitals/I & O Vital Sign - Last 24 Hours 01/12/19 01/12/19 01/12/19 01/12/19 10:04 11:00 15:00 16:32 Temp 98.4 97.8 98.4 97.8 Pulse 70 77 Resp 16 18 B/P (MAP) 116/64 (81) 118/39 (65) Pulse Ox 93 95 96 95 O2 Delivery Room Air Room Air Room Air Room Air 01/12/19 01/12/19 01/12/19 01/12/19 17:17 19:00 20:00 23:00 Temp 98.8 98.0 98.8 98.0 Pulse 71 72 Resp 16 18 B/P (MAP) 105/61 (76) 166/75 (105) Pulse Ox 95 97 96 O2 Delivery Room Air Room Air 01/13/19 01/13/19 03:29 07:00 Temp 98.2 97.9 98.2 97.9 Pulse 66 66 Resp 18 18 B/P (MAP) 111/51 (71) 121/64 (83) Pulse Ox 95 97 O2 Delivery Room Air Room Air Intake and Output 01/12/19 01/12/19 01/13/19 15:00 23:00 07:00 Intake Total 320 ml 600 ml Balance 320 ml 600 ml TRINA GREEN MD Jan 13, 2019 09:40
--- NOTE | 2019-01-13 09:51 | PDOC ---
Infectious Disease Note Subjective Subjective Doing ok but still some back pain but better - constipated No F/C/S/N/V/D/SOA. rash ROS ROS o/w neg Vital Sign Vital Signs Vital Signs Date Time Temp Pulse Resp B/P (MAP) Pulse Ox O2 Delivery O2 Flow Rate FiO2 01/13/19 07:00 97.9 66 18 121/64 (83) 97 Room Air 97.9 Physical Exam PHYSICAL EXAM CONSTITUTIONAL: She is sitting bed. She is cooperative. She is in no acute distress. HEENT: Pupils are status post cataract surgery. Oral cavity, pharynx is dry. NECK: Supple. Good range of motion. LUNGS: Clear to auscultation. HEART: S1, S2. ABDOMEN: Soft, nontender, no guarding, no rebound. EXTREMITIES: Without clubbing, cyanosis nor edema. NEUROLOGIC: She answers questions. PSYCHIATRIC: Affect is pleasant PIC- RUE - bruised but clean. Labs Lab Laboratory Tests Test 01/13/19 03:30 White Blood Count 9.9 x10^3/uL (4.0-11.0) Red Blood Count 3.89 x10^6/uL (3.50-5.40) Hemoglobin 11.9 g/dL (12.0-15.5) Hematocrit 35.5 % (36.0-47.0) Mean Corpuscular Volume 91 fL (79-100) Mean Corpuscular Hemoglobin 31 pg (25-35) Mean Corpuscular Hemoglobin Concent 34 g/dL (31-37) Red Cell Distribution Width 14.0 % (11.5-14.5) Platelet Count 272 x10^3/uL (140-400) Neutrophils (%) (Auto) 56 % (31-73) Lymphocytes (%) (Auto) 27 % (24-48) Monocytes (%) (Auto) 8 % (0-9) Eosinophils (%) (Auto) 7 % (0-3) Basophils (%) (Auto) 1 % (0-3) Neutrophils # (Auto) 5.6 x10^3/uL (1.8-7.7) Lymphocytes # (Auto) 2.7 x10^3/uL (1.0-4.8) Monocytes # (Auto) 0.8 x10^3/uL (0.0-1.1) Eosinophils # (Auto) 0.7 x10^3/uL (0.0-0.7) Basophils # (Auto) 0.1 x10^3/uL (0.0-0.2) Sodium Level 144 mmol/L (136-145) Potassium Level 3.7 mmol/L (3.5-5.1) Chloride Level 108 mmol/L (98-107) Carbon Dioxide Level 28 mmol/L (21-32) Anion Gap 8 (6-14) Blood Urea Nitrogen 10 mg/dL (7-20) Creatinine 0.8 mg/dL (0.6-1.0) Estimated GFR (Cockcroft-Gault) 70.1 Glucose Level 101 mg/dL (70-99) Calcium Level 8.7 mg/dL (8.5-10.1) Micro Microbiology 01/11/19 Blood Culture - Preliminary, Resulted NO GROWTH AFTER 1 DAY Objective Assessment UTI - POA 01/11 - h/o MDR in September recent Cipro Leukocytosis - better HTN H/o MRSA H/o CVA Plan Plan of Care Cont Meropenem but to q 6 Miralax F/u labs and cults May benefit from topical vaginal estrogen Would benefit from outpatient Urology rola D/w daughter ESTUARDO CONTI MD Jan 13, 2019 09:51
[2019-01-13 11:00] VITALS: BP 148/54
[2019-01-13] MEDS: POLYETHYLENE GLYCOL 3350 17 GM PACKET. PO SCH (13:45)
--- NOTE | 2019-01-13 14:08 | NUR ---
SW following for discharge planning. Chart reviewed, discussed with RN. Pt on Meropenem Q6. SW met with pt to determine home health agency pt is current with. Pt reported she uses [facility]. SW contacted [facility] (ph: [phone], fax: [phone]) to confirm. Yvon reported pt was receiving home health RN, PT, OT. ADE will fax discharge paperwork upon discharge. ADE will continue to follow for discharge planning.
[2019-01-13 15:00] VITALS: BP 142/58
--- NOTE | 2019-01-13 15:40 | NUR ---
Assumed pt care at this time. Pt in bed watching tv. Denies any needs at this time. Call light within reach. Will continue to monitor.
[2019-01-13 19:20] VITALS: BP 144/82
[2019-01-13] MEDS: ATORVASTATIN CALCIUM 20 MG TABLET PO SCH (21:20)
[2019-01-13 23:30] VITALS: BP 144/65
[2019-01-14 02:58] VITALS: BP 131/74
[2019-01-14] MEDS: MEROPENEM 500 MG in IV NORMAL SALINE 50ML 50 ML IV SCH ×3 (05:50→18:01)
[2019-01-14] MEDS: PANTOPRAZOLE 40 MG TABLET.DR. PO SCH (06:05)
[2019-01-14 07:00] VITALS: BP 147/65
[2019-01-14] MEDS: POLYETHYLENE GLYCOL 3350 17 GM PACKET. PO SCH (09:00)
[2019-01-14] MEDS: FLUTICASONE 50MCG/NASAL SPRAY 16GM BOTTLE. NS SCH (09:31)
[2019-01-14] MEDS: ASPIRIN 325 MG TABLET PO SCH (09:31)
[2019-01-14] MEDS: POTASSIUM CHLORIDE 20 MEQ TABLET.ER. PO SCH (09:32)
[2019-01-14] MEDS: busPIRone 5 MG TABLET. PO SCH ×2 (09:32→21:21)
[2019-01-14] MEDS: CYANOCOBALAMIN (VITAMIN B-12) 1,000 MCG TABLET. PO SCH (09:32)
[2019-01-14] MEDS: LACTOBACILLUS RHAMNOSUS GG 1 CAPSULE. PO SCH ×2 (09:32→21:21)
[2019-01-14] MEDS: CLOPIDOGREL BISULFATE 75 MG TABLET PO SCH (09:32)
[2019-01-14] MEDS: CHOLECALCIFEROL (VITAMIN D3) 1,000 UNIT TABLET PO SCH (09:32)
[2019-01-14] MEDS: FOLIC ACID 1 MG TABLET. PO SCH (09:32)
[2019-01-14] MEDS: SERTRALINE 50 MG TABLET. PO SCH (09:32)
[2019-01-14] MEDS: ENOXAPARIN 40 MG/0.4 ML SYRINGE. SQ SCH (09:33)
--- NOTE | 2019-01-14 09:58 | PDOC ---
Infectious Disease Note Subjective Subjective Doing better - constipation is better No F/C/S/N/V/D/SOA. rash ROS ROS o/w neg Vital Sign Vital Signs Vital Signs Date Time Temp Pulse Resp B/P (MAP) Pulse Ox O2 Delivery O2 Flow Rate FiO2 01/14/19 07:00 98.2 65 16 147/65 (92) 96 Room Air 98.2 Physical Exam PHYSICAL EXAM CONSTITUTIONAL: She is sitting bed. She is cooperative. She is in no acute distress. HEENT: Pupils are status post cataract surgery. Oral cavity, pharynx is dry. NECK: Supple. Good range of motion. LUNGS: Clear to auscultation. HEART: S1, S2. ABDOMEN: Soft, nontender, no guarding, no rebound. EXTREMITIES: Without clubbing, cyanosis nor edema. NEUROLOGIC: She answers questions. PSYCHIATRIC: Affect is pleasant PIC- RUE - bruised but clean. Labs Micro Microbiology 01/11/19 Blood Culture - Preliminary, Resulted NO GROWTH AFTER 1 DAY Objective Assessment GNR UTI - POA 01/11 - h/o MDR in September recent Cipro Leukocytosis - better HTN H/o MRSA H/o CVA Plan Plan of Care Cont Meropenem but to q 6 Hold Miralax F/u labs and cults May benefit from topical vaginal estrogen Would benefit from outpatient Urology eval maybe even [employer]VE[employer]GER D/w [facility] this am - no additional information beyond GNR D/w daughter/granddaughter ESTUARDO CONTI MD Jan 14, 2019 09:58
--- NOTE | 2019-01-14 10:15 | PDOC ---
PROGRESS NOTES Chief Complaint Chief Complaint impression Recuurent UTI ( ec yany) Urinary retention, in high likelihood Colonic diverticulosis. Acute metabolic encephalopathy, in the background of UTI< resolved POA Extensive suspected remote ischemic changes are identified within bilateral posterior MCA territories as well as the left medial occipital lobe. 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 OBESITY hypokalemia- replaced 29 min pt exam, chart review, > 50% of time spent with exam, chart review, pt care coordination History of Present Illness History of Present Illness ID HAS INCREASED FREQ OF MERREM TO q6 FROM Q8 NO complaints, she is back to baseline with mentation AGreeable only to existing HH VOding freely - on bladder scan protocol Earlier Entry: BAck to normal in [place] Dtr at bedside, relays to me pt was put on 3x/week suppressive abx by colleague for recurrent UTI UTI on UA Multiple episodes UTI in a yr ATe well, PLAN merrem q6 AWAIT URINE C and S PT OT existing HH on dc Ok to eat LIpase normal - CT mentions atrophied pancreas she looks good BLADDER SCAN PROTOCOL - retention likely culprit for her freq uti's (she doesnt self cath) Vitals Vitals Vital Signs Date Time Temp Pulse Resp B/P (MAP) Pulse Ox O2 Delivery O2 Flow Rate FiO2 01/14/19 07:00 98.2 65 16 147/65 (92) 96 Room Air 98.2 Physical Exam Physical Exam CONSTITUTIONAL: She is sitting bed. She is cooperative. She is in no acute distress. HEENT: Pupils are status post cataract surgery. Oral cavity, pharynx is dry. NECK: Supple. Good range of motion. LUNGS: Clear to auscultation. HEART: S1, S2. ABDOMEN: Soft, nontender, no guarding, no rebound. EXTREMITIES: Without clubbing, cyanosis nor edema. NEUROLOGIC: She answers questions. PSYCHIATRIC: Affect is pleasant PIC- RUE - bruised but clean. General: Alert, Oriented X3, Cooperative, No acute distress Heart: Regular rate, Normal S1, Normal S2, No murmurs Lungs: Clear Abdomen: Normal bowel sounds, Soft, No tenderness Extremities: No clubbing, No cyanosis, No edema Skin: No rashes, No breakdown, No significant lesion Assessment and Plan Assessmemt and Plan Problems Medical Problems: (1) Dehydration Status: Acute (2) Generalized weakness Status: Acute * Family Other Prior Level of Function Information * Pt states that right knee marisol sometimes but she generally is able to tell when it is going to happen. Pt reports she was receiving home health PT and nearing relaese to amb outside of apt on he own. Dtr assist with laundry and heavy housekeeping, shopping,. Pt reports she has never driven Other Precautions * fall risk Level of Consciousness * Alert Follows Direction * Complex Behavior * Cooperative Safety/Judgement * Decreased Safety * Verbal Cues Required * Due to Strength/ROM Defic * Due to Coordination Defic Communication * WFL Sensation * intact Sensation Location * Left Lower Extremity * Right Lower Extremity Coordination * Gross motor cood. decr. Activity Tolerance * Poor + Activity Tolerance/ Vitals * No signs of distress noted with activity Range of Motion * WFL BLE Strength * RLE grossly 4/5; LLE grossly 3+/5 Sitting Balance * 4+ Moves 1-2" all planes Standing Balance * 2 balances w/ both UEs PT PAIN COMMENTS * no reported pain Rolling Right Assistance Required * Stand-by Assistance * Bedrail Used Supine to Sit Assistance Required * Stand-by Assistance * Bedrail Used Bed Mobility Comments * HOB elevated Transfer Assistance Required * Contact Guard Assist Transfer Type * Sit to Stand Transfer Assistive Device * Roller Walker Transfer Comments * verbal cues for hand placement Ambulation Assistance Required * Contact Guard Assist Ambulation Assistive Device * Roller Walker Ambulation Distance * 70' Gait Impairments * Slow Lissy * Step-To Gait Ambulation Comments * Pt able to complete step through gait with cueing. Pt limited by report of feeling like her knee was going to buckle. Other Information * Pt with limitations in strength, balance, coordination which limit pt indep with functional mobility. Pt would benefit from Bed Mobility For KU Functional Outcomes Tool * Supervision Transfers Bed To Chair For KU Functional Outcomes Tool * Minimal Assistance Gait Walking On Level Surfaces * Minimal Assistance Walking Distances For KU Functional Tool * 51'-100' Number of KU Functional Outcomes Tool Questions Answered * 4 KU Functional Outcomes Tool Score * 4.0 Testing considered to assess G code/modifier * KU Functional Outcomes Patient Stated Goal * Return home Rehab Potential to Achieve Goals * Good Learning Preferences * One-on-One Instruction * Demonstration * Discussion Factors Facilitating Goal Achievement * Motivation level * Supportive caregiver * Prior level of function * Cognition * Response to training Problem List (body system elements) * Impaired fnctnl mobility * Strength * Balance * Age * Coordination * Knowledge-safe techniques Other Problems * Pt with OT at end of session Clinical Presentation * Evolving Evaluation Complexity Level * Moderate Complexity Pt/caregiver agrees with plan of care/goals * Yes Communicated Patient Care With (Name, Title) * Stephani MURILLO; Brittany NGUYỄN Goal 1 - Bed Mobility Assistance Required * Independent Goal 1 Assessment * Appropriate - Continue Goal 2 - Transfers Assistance Required * Independent Goal 2 - Transfer Type * Sit to Stand Goal 2 Assessment * Appropriate - Continue Goal 3 - Ambulation Assistance Required * Independent Goal 3 - Ambulation Distance * 50' Goal 3 - Ambulation Device * Roller Walker Goal 3 Assessment * Appropriate - Continue Treatment Plan * Therapeutic Exercise * Bed Mobility Training * Transfer training * Gait Training * Dynamic Balance Training Frequency of Treatment Expected * 7 visits/week Duration of Treatment Expected * 2 weeks Discharge Recommendations * Home with Assistance * Home with Home Health Discharge Recommendation Comments * Equipment appears in place will continue to assess Comment Review of Relevant I have reviewed the following items eryn (where applicable) has been applied. Labs Laboratory Tests Test 01/13/19 03:30 White Blood Count 9.9 x10^3/uL (4.0-11.0) Red Blood Count 3.89 x10^6/uL (3.50-5.40) Hemoglobin 11.9 g/dL (12.0-15.5) Hematocrit 35.5 % (36.0-47.0) Mean Corpuscular Volume 91 fL (79-100) Mean Corpuscular Hemoglobin 31 pg (25-35) Mean Corpuscular Hemoglobin Concent 34 g/dL (31-37) Red Cell Distribution Width 14.0 % (11.5-14.5) Platelet Count 272 x10^3/uL (140-400) Neutrophils (%) (Auto) 56 % (31-73) Lymphocytes (%) (Auto) 27 % (24-48) Monocytes (%) (Auto) 8 % (0-9) Eosinophils (%) (Auto) 7 % (0-3) Basophils (%) (Auto) 1 % (0-3) Neutrophils # (Auto) 5.6 x10^3/uL (1.8-7.7) Lymphocytes # (Auto) 2.7 x10^3/uL (1.0-4.8) Monocytes # (Auto) 0.8 x10^3/uL (0.0-1.1) Eosinophils # (Auto) 0.7 x10^3/uL (0.0-0.7) Basophils # (Auto) 0.1 x10^3/uL (0.0-0.2) Sodium Level 144 mmol/L (136-145) Potassium Level 3.7 mmol/L (3.5-5.1) Chloride Level 108 mmol/L (98-107) Carbon Dioxide Level 28 mmol/L (21-32) Anion Gap 8 (6-14) Blood Urea Nitrogen 10 mg/dL (7-20) Creatinine 0.8 mg/dL (0.6-1.0) Estimated GFR (Cockcroft-Gault) 70.1 Glucose Level 101 mg/dL (70-99) Calcium Level 8.7 mg/dL (8.5-10.1) Microbiology 01/11/19 Blood Culture - Preliminary, Resulted NO GROWTH AFTER 2 DAYS 01/11/19 Urine Culture - Preliminary, Resulted 01/11/19 Urine Culture Result 1 (BONNY) - Preliminary, Resulted Medications Current Medications Fentanyl Citrate (Fentanyl 2ml Vial) 25 mcg PRN Q15MIN PRN IV PAIN GREATER THAN 3/10 Last administered on 01/11/19at 13:39; Start 01/11/19 at 13:15; Stop 01/12/19 at 10:40; Status DC Sodium Chloride 1,000 ml @ 1,000 mls/hr Q1H IV Last administered on 01/11/19at 13:40; Start 01/11/19 at 13:06; Stop 01/11/19 at 14:05; Status DC Ondansetron HCl (Zofran) 4 mg 1X ONCE IV Last administered on 01/11/19at 13:39; Start 01/11/19 at 13:15; Stop 01/11/19 at 13:16; Status DC Ceftriaxone Sodium (Rocephin) 1 gm 1X ONCE IVP Last administered on 01/11/19at 15:09; Start 01/11/19 at 15:00; Stop 01/11/19 at 15:01; Status DC Sodium Chloride 1,000 ml @ 125 mls/hr Q8H IV Last administered on 01/12/19at 08:58; Start 01/11/19 at 15:24; Stop 01/12/19 at 10:40; Status DC Ceftriaxone Sodium (Rocephin) 1 gm Q24H IVP ; Start 01/12/19 at 15:00; Stop 01/11/19 at 16:05; Status DC Potassium Chloride (Klor-Con) 40 meq 1X ONCE PO Last administered on 1 at 16:29; Start 01/11/19 at 16:30; Stop 01/11/19 at 16:31; Status DC Potassium Chloride (Klor-Con) 20 meq DAILYWBKFT PO Last administered on 01/14/19at 09:32; Start 01/12/19 at 08:00 Sodium Chloride 1,000 ml @ 100 mls/hr Q10H IV Last administered on 01/12/19at 02:45; Start 01/11/19 at 16:30; Stop 01/12/19 at 10:51; Status DC Acetaminophen (Tylenol) 650 mg PRN Q4HRS PRN GT TEMP OVER 100.4F OR MILD PAIN; Start 01/11/19 at 16:00 Al Hydroxide/Mg Hydroxide (Mylanta Plus Xs) 30 ml PRN DAILY PRN PO HEARTBURN / GAS; Start 01/11/19 at 16:00 Clonidine HCl (Catapres) 0.1 mg PRN Q6HRS PRN PO SBP>160 OR DBP>90; Start 01/11/19 at 16:00 Docusate Sodium (Colace) 100 mg PRN BID PRN PO CONSTIPATION; Start 01/11/19 at 16:00 Albuterol Sulfate (Ventolin Neb Soln) 2.5 mg PRN Q4HRS PRN NEB SHORTNESS OF BREATH; Start 01/11/19 at 16:00 Lorazepam (Ativan) 0.5 mg PRN Q4HRS PRN PO ANXIETY / AGITATION; Start 01/11/19 at 16:00 Enoxaparin Sodium (Lovenox 40mg Syringe) 40 mg DAILY SQ Last administered on 01/14/19at 09:33; Start 01/12/19 at 09:00 Aspirin (Thu Aspirin) 325 mg DAILY PO Last administered on 01/14/19at 09:31; Start 01/12/19 at 09:00 Atorvastatin Calcium (Lipitor) 20 mg QHS PO Last administered on 01/13/19 21:20; Start 01/11/19 at 21:00 Vitamin D (Vitamin D3) 2,000 unit DAILY PO Last administered on 01/14/19 09:32; Start 01/12/19 at 09:00 Clopidogrel Bisulfate (Plavix) 75 mg DAILY PO Last administered on 01/14/19 09:32; Start 01/12/19 at 09:00 Cyanocobalamin (Vitamin B-12) 1,000 mcg DAILY PO Last administered on 01/14/19 09:32; Start 01/12/19 at 09:00 Lorazepam (Ativan) 0.5 mg PRN QHS PRN PO ANXIETY / AGITATION; Start 01/11/19 at 16:00; Stop 01/12/19 at 10:46; Status DC Sertraline HCl (Zoloft) 50 mg DAILY PO Last administered on 01/14/19 09:32; Start 01/12/19 at 09:00 Famotidine (Pepcid) 20 mg QHS PO Last administered on 01/11/19 21:06; Start 01/11/19 at 21:00; Stop 01/12/19 at 08:14; Status DC Fluticasone Propionate (Flonase) 2 spray DAILY NS Last administered on 12/18 09:31; Start 01/12/19 at 09:00 Lactobacillus Rhamnosus (Culturelle) 1 cap BID PO Last administered on 01/14/19 09:32; Start 01/11/19 at 21:00 Non-Formulary Medication (Melatonin ) 1 tab QHS PO ; Start 01/11/19 at 21:00; Status UNV Meropenem 500 mg/ Sodium Chloride 50 ml @ 100 mls/hr Q8HRS IV Last administered on 01/12/19 05:08; Start 01/11/19 at 17:00; Stop 01/12/19 at 10:42; Status DC Acetaminophen (Tylenol) 500 mg PRN Q6HRS PRN PO HEADACHE/ TEMP; Start 01/12/19 at 08:15 Acetaminophen/ Codeine Phosphate (Tylenol #3) 1 tab PRN Q6HRS PRN PO PAIN MILD TO MOD Last administered on 01/12/19 16:32; Start 01/12/19 at 08:15 Temazepam (Restoril) 7.5 mg PRN QHS PRN PO INSOMNIA; Start 01/12/19 at 08:15 Ondansetron HCl (Zofran) 4 mg PRN Q6HRS PRN IVP NAUSEA/VOMITING; Start 01/12/19 at 08:15 Morphine Sulfate (Morphine Sulfate) 1 mg PRN Q2HR PRN IV PAIN; Start 01/12/19 at 08:15 Buspirone HCl (Buspar) 5 mg BID PO Last administered on 01/14/19at 09:32; Start 01/12/19 at 09:00 Pantoprazole Sodium (Protonix) 40 mg DAILYAC PO Last administered on 01/14/19at 06:05; Start 01/12/19 at 09:00 Non-Formulary Medication (Pravastatin Sodium ) 5 mg DAILY PO ; Start 01/12/19 at 09:00; Stop 01/12/19 at 08:13; Status DC Folic Acid (Folic Acid) 1 mg DAILY PO Last administered on 01/14/19at 09:32; Start 01/12/19 at 09:00 Meropenem 500 mg/ Sodium Chloride 50 ml @ 100 mls/hr Q6HRS IV Last administered on 01/14/19at 05:50; Start 01/12/19 at 12:00 Polyethylene Glycol (miraLAX PACKET) 17 gm DAILY PO Last administered on 01/13/19at 13:45; Start 01/13/19 at 11:00 Active Scripts Active Cefuroxime (Cefuroxime Axetil) 250 Mg Tablet 250 Mg PO 3X/WEEK 30 Days MWF weekly for UTI prevention Aspirin 325 Mg Tablet 1 Tab PO DAILY Reported Pravastatin Sodium 10 Mg Tablet 5 Mg PO DAILY Omeprazole 20 Mg Tablet.dr 1 Tab PO DAILY [folic acid] 1 Mg DAILY Buspirone Hcl 5 Mg Tablet 1 Tab PO BID Acidophilus (Lactobacillus Acidophilus) 1 Each Capsule 1 Each PO DAILY Vitamin D3 (Cholecalciferol (Vitamin D3)) 1,000 Unit Tablet 2 Tab PO DAILY Vitamin B-12 (Cyanocobalamin (Vitamin B-12)) 1,000 Mcg Tablet 1 Tab PO DAILY Melatonin 3 Mg Tablet 1 Tab PO QHS Zoloft (Sertraline Hcl) 25 Mg Tablet 1 Tab PO DAILY Clopidogrel (Clopidogrel Bisulfate) 75 Mg Tablet 1 Tab PO DAILY Vitals/I & O Vital Sign - Last 24 Hours 01/13/19 01/13/19 01/13/19 01/13/19 11:00 15:00 19:20 23:30 Temp 98.2 98.1 98.2 98.0 98.2 98.1 98.2 98.0 Pulse 65 65 79 72 Resp 18 18 18 18 B/P (MAP) 148/54 (85) 142/58 (86) 144/82 (102) 144/65 (91) Pulse Ox 94 92 96 96 O2 Delivery Room Air Room Air Room Air Room Air 01/14/19 01/14/19 02:58 07:00 Temp 98.2 98.2 98.2 98.2 Pulse 74 65 Resp 18 16 B/P (MAP) 131/74 (93) 147/65 (92) Pulse Ox 97 96 O2 Delivery Room Air Room Air Intake and Output 01/13/19 01/13/19 01/14/19 15:00 23:00 07:00 Intake Total 480 ml Balance 480 ml DALJIT PETERSEN MD Jan 14, 2019 10:15
[2019-01-14 11:00] VITALS: BP 105/60
--- NOTE | 2019-01-14 12:15 | NUR ---
SW following. Discussed with RN, awaiting cultures. Pt to discharge home with [facility] PT,OT,RN (ph: [phone], fax: [phone]). SW awaiting discharge instructions. RN notified.
[2019-01-14 15:00] VITALS: BP 120/50
[2019-01-14 19:00] VITALS: BP 129/58
[2019-01-14] MEDS: ATORVASTATIN CALCIUM 20 MG TABLET PO SCH (21:21)
[2019-01-14 23:00] VITALS: BP 123/70
[2019-01-15] MEDS: MEROPENEM 500 MG in IV NORMAL SALINE 50ML 50 ML IV SCH ×4 (00:09→18:00)
[2019-01-15 03:00] VITALS: BP 127/90
[2019-01-15] MEDS: PANTOPRAZOLE 40 MG TABLET.DR. PO SCH (06:22)
[2019-01-15 07:00] VITALS: BP 134/65
[2019-01-15] MEDS: CYANOCOBALAMIN (VITAMIN B-12) 1,000 MCG TABLET. PO SCH (09:44)
[2019-01-15] MEDS: busPIRone 5 MG TABLET. PO SCH ×2 (09:44→21:35)
[2019-01-15] MEDS: ASPIRIN 325 MG TABLET PO SCH (09:45)
[2019-01-15] MEDS: SERTRALINE 50 MG TABLET. PO SCH (09:45)
[2019-01-15] MEDS: CHOLECALCIFEROL (VITAMIN D3) 1,000 UNIT TABLET PO SCH (09:45)
[2019-01-15] MEDS: FOLIC ACID 1 MG TABLET. PO SCH (09:45)
[2019-01-15] MEDS: LACTOBACILLUS RHAMNOSUS GG 1 CAPSULE. PO SCH ×2 (09:45→21:35)
[2019-01-15] MEDS: CLOPIDOGREL BISULFATE 75 MG TABLET PO SCH (09:46)
[2019-01-15] MEDS: POTASSIUM CHLORIDE 20 MEQ TABLET.ER. PO SCH (09:46)
[2019-01-15] MEDS: ENOXAPARIN 40 MG/0.4 ML SYRINGE. SQ SCH (09:47)
[2019-01-15] MEDS: FLUTICASONE 50MCG/NASAL SPRAY 16GM BOTTLE. NS SCH (09:59)
[2019-01-15] MEDS: ACETAMINOPHEN/CODEINE 300/30MG TABLET. PO PRN (09:59)
--- NOTE | 2019-01-15 10:31 | PDOC ---
PROGRESS NOTES Chief Complaint Chief Complaint impression Recuurent UTI ( ec yany) Urinary retention, Colonic diverticulosis. Acute metabolic encephalopathy, in the background of UTI< resolved POA Extensive suspected remote ischemic changes are identified within bilateral posterior MCA territories as well as the left medial occipital lobe. 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 OBESITY hypokalemia- replaced id awaits final culture 26 min pt exam, chart review, > 50% of time spent with exam, chart review, pt care coordination History of Present Illness History of Present Illness plan ID HAS INCREASED FREQ OF MERREM TO q6 FROM Q8 NO complaints, she is back to baseline with mentation AGreeable only to existing HH VOding freely - on bladder scan protocol Earlier Entry: BAck to normal in [place] Dtr at bedside, relays to me pt was put on 3x/week suppressive abx by colleague for recurrent UTI UTI on UA Multiple episodes UTI in a yr ATe well, PLAN merrem q6 AWAIT URINE C and S PT OT existing HH on dc Ok to eat LIpase normal - CT mentions atrophied pancreas she looks good BLADDER SCAN PROTOCOL - retention likely Vitals Vitals Vital Signs Date Time Temp Pulse Resp B/P (MAP) Pulse Ox O2 Delivery O2 Flow Rate FiO2 01/15/19 09:59 98 Room Air 01/15/19 07:00 98.1 65 16 134/65 (88) 98.1 Physical Exam Physical Exam CONSTITUTIONAL: She is sitting bed. She is cooperative. She is in no acute distress. HEENT: Pupils are status post cataract surgery. Oral cavity, pharynx is dry. NECK: Supple. Good range of motion. LUNGS: Clear to auscultation. HEART: S1, S2. ABDOMEN: Soft, nontender, no guarding, no rebound. EXTREMITIES: Without clubbing, cyanosis nor edema. NEUROLOGIC: She answers questions. PSYCHIATRIC: Affect is pleasant PIC- RUE - bruised but clean. General: Alert, Oriented X3, Cooperative, No acute distress Heart: Regular rate, Normal S1, Normal S2, No murmurs Lungs: Clear Abdomen: Normal bowel sounds, Soft, No tenderness Extremities: No clubbing, No cyanosis, No edema Skin: No rashes, No breakdown, No significant lesion Labs LABS STATUS: ADM IN TLOC: SPEC #: [id number] EVERARDO: 01/11/19 STATUS: RES REQ #: [id number] RECD: 01/11/[address]: SHANICE MONTAÑO Jr. DO SOURCE: STRA CATH ENTR: 01/11/[address] [facility] [address]: ERYN PEREZ MD [facility]: STR CATH ORDERED: URINE CULTURE Procedure Result URINE CULTURE Preliminary Preliminary report URINE CULTURE RES 1 Preliminary Gram negative rods Klebsiella pneumoniae Greater than 100,000 colony forming units per mL Performed at: - [address], [place], [place] [id number] Sealing Machine Operator: CELSO Nieto MD, Phone: [phone] Greater than 100,000 colony forming units per mL Susceptibility profile is consistent with a probable ESBL. Performed at: [facility] [address], [place], [place] [id number] Sealing Machine Operator: CELSO Nieto MD, Phone: [phone] ------ ------ Assessment and Plan Assessmemt and Plan Problems Medical Problems: (1) Dehydration Status: Acute (2) Generalized weakness Status: Acute Comment Review of Relevant I have reviewed the following items eryn (where applicable) has been applied. Labs Microbiology 01/11/19 Blood Culture - Preliminary, Resulted NO GROWTH AFTER 3 DAYS 01/11/19 Urine Culture - Preliminary, Resulted 01/11/19 Urine Culture Result 1 (BONNY) - Preliminary, Resulted Medications Current Medications Fentanyl Citrate (Fentanyl 2ml Vial) 25 mcg PRN Q15MIN PRN IV PAIN GREATER THAN 3/10 Last administered on 01/11/19at 13:39; Start 01/11/19 at 13:15; Stop 01/12/19 at 10:40; Status DC Sodium Chloride 1,000 ml @ 1,000 mls/hr Q1H IV Last administered on 01/11/19at 13:40; Start 01/11/19 at 13:06; Stop 01/11/19 at 14:05; Status DC Ondansetron HCl (Zofran) 4 mg 1X ONCE IV Last administered on 01/11/19at 13:39; Start 01/11/19 at 13:15; Stop 01/11/19 at 13:16; Status DC Ceftriaxone Sodium (Rocephin) 1 gm 1X ONCE IVP Last administered on 01/11/19at 15:09; Start 01/11/19 at 15:00; Stop 01/11/19 at 15:01; Status DC Sodium Chloride 1,000 ml @ 125 mls/hr Q8H IV Last administered on 01/12/19at 0 8:58; Start 01/11/19 at 15:24; Stop 01/12/19 at 10:40; Status DC Ceftriaxone Sodium (Rocephin) 1 gm Q24H IVP ; Start 01/12/19 at 15:00; Stop 01/11/19 at 16:05; Status DC Potassium Chloride (Klor-Con) 40 meq 1X ONCE PO Last administered on 01/11/19a t 16:29; Start 01/11/19 at 16:30; Stop 01/11/19 at 16:31; Status DC Potassium Chloride (Klor-Con) 20 meq DAILYWBKFT PO Last administered on 01/15/19at 09:46; Start 01/12/19 at 08:00 Sodium Chloride 1,000 ml @ 100 mls/hr Q10H IV Last administered on 01/12/19at 02:45; Start 01/11/19 at 16:30; Stop 01/12/19 at 10:51; Status DC Acetaminophen (Tylenol) 650 mg PRN Q4HRS PRN GT TEMP OVER 100.4F OR MILD PAIN; Start 01/11/19 at 16:00 Al Hydroxide/Mg Hydroxide (Mylanta Plus Xs) 30 ml PRN DAILY PRN PO HEARTBURN / GAS; Start 01/11/19 at 16:00 Clonidine HCl (Catapres) 0.1 mg PRN Q6HRS PRN PO SBP>160 OR DBP>90; Start 01/11/19 at 16:00 Docusate Sodium (Colace) 100 mg PRN BID PRN PO CONSTIPATION; Start 01/11/19 at 16:00 Albuterol Sulfate (Ventolin Neb Soln) 2.5 mg PRN Q4HRS PRN NEB SHORTNESS OF BREATH; Start 01/11/19 at 16:00 Lorazepam (Ativan) 0.5 mg PRN Q4HRS PRN PO ANXIETY / AGITATION; Start 01/11/19 at 16:00 Enoxaparin Sodium (Lovenox 40mg Syringe) 40 mg DAILY SQ Last administered on 01/15/19at 09:47; Start 01/12/19 at 09:00 Aspirin (Thu Aspirin) 325 mg DAILY PO Last administered on 01/15/19 09:45; Start 01/12/19 at 09:00 Atorvastatin Calcium (Lipitor) 20 mg QHS PO Last administered on 01/14/19 21:21; Start 01/11/19 at 21:00 Vitamin D (Vitamin D3) 2,000 unit DAILY PO Last administered on 01/15/19 09:45; Start 01/12/19 at 09:00 Clopidogrel Bisulfate (Plavix) 75 mg DAILY PO Last administered on 01/15/19 09:46; Start 01/12/19 at 09:00 Cyanocobalamin (Vitamin B-12) 1,000 mcg DAILY PO Last administered on 01/15/19at 09:44; Start 01/12/19 at 09:00 Lorazepam (Ativan) 0.5 mg PRN QHS PRN PO ANXIETY / AGITATION; Start 01/11/19 at 16:00; Stop 01/12/19 at 10:46; Status DC Sertraline HCl (Zoloft) 50 mg DAILY PO Last administered on 01/15/19at 09:45; Start 01/12/19 at 09:00 Famotidine (Pepcid) 20 mg QHS PO Last administered on 01/11/19at 21:06; Start 01/11/19 at 21:00; Stop 01/12/19 at 08:14; Status DC Fluticasone Propionate (Flonase) 2 spray DAILY NS Last administered on 01/15/19at 09:59; Start 01/12/19 at 09:00 Lactobacillus Rhamnosus (Culturelle) 1 cap BID PO Last administered on 01/15/19at 09:45; Start 01/11/19 at 21:00 Non-Formulary Medication (Melatonin ) 1 tab QHS PO ; Start 01/11/19 at 21:00; Status UNV Meropenem 500 mg/ Sodium Chloride 50 ml @ 100 mls/hr Q8HRS IV Last administered on 01/12/19at 05:08; Start 01/11/19 at 17:00; Stop 01/12/19 at 10:42; Status DC Acetaminophen (Tylenol) 500 mg PRN Q6HRS PRN PO HEADACHE/ TEMP; Start 01/12/19 at 08:15 Acetaminophen/ Codeine Phosphate (Tylenol #3) 1 tab PRN Q6HRS PRN PO PAIN MILD TO MOD Last administered on 01/15/19at 09:59; Start 01/12/19 at 08:15 Temazepam (Restoril) 7.5 mg PRN QHS PRN PO INSOMNIA; Start 01/12/19 at 08:15 Ondansetron HCl (Zofran) 4 mg PRN Q6HRS PRN IVP NAUSEA/VOMITING; Start 01/12/19 at 08:15 Morphine Sulfate (Morphine Sulfate) 1 mg PRN Q2HR PRN IV PAIN; Start 01/12/19 at 08:15 Buspirone HCl (Buspar) 5 mg BID PO Last administered on 01/15/19at 09:44; Start 01/12/19 at 09:00 Pantoprazole Sodium (Protonix) 40 mg DAILYAC PO Last administered on 01/15/19at 06:22; Start 01/12/19 at 09:00 Non-Formulary Medication (Pravastatin Sodium ) 5 mg DAILY PO ; Start 01/12/19 at 09:00; Stop 01/12/19 at 08:13; Status DC Folic Acid (Folic Acid) 1 mg DAILY PO Last administered on 01/15/19at 09:45; Start 01/12/19 at 09:00 Meropenem 500 mg/ Sodium Chloride 50 ml @ 100 mls/hr Q6HRS IV Last administered on 01/15/19at 06:22; Start 01/12/19 at 12:00 Polyethylene Glycol (miraLAX PACKET) 17 gm DAILY PO Last administered on 01/13/19at 13:45; Start 01/13/19 at 11:00; Stop 01/14/19 at 10:45; Status DC Active Scripts Active Cefuroxime (Cefuroxime Axetil) 250 Mg Tablet 250 Mg PO 3X/WEEK 30 Days MWF weekly for UTI prevention Aspirin 325 Mg Tablet 1 Tab PO DAILY Reported Pravastatin Sodium 10 Mg Tablet 5 Mg PO DAILY Omeprazole 20 Mg Tablet.dr 1 Tab PO DAILY [folic acid] 1 Mg DAILY Buspirone Hcl 5 Mg Tablet 1 Tab PO BID Acidophilus (Lactobacillus Acidophilus) 1 Each Capsule 1 Each PO DAILY Vitamin D3 (Cholecalciferol (Vitamin D3)) 1,000 Unit Tablet 2 Tab PO DAILY Vitamin B-12 (Cyanocobalamin (Vitamin B-12)) 1,000 Mcg Tablet 1 Tab PO DAILY Melatonin 3 Mg Tablet 1 Tab PO QHS Zoloft (Sertraline Hcl) 25 Mg Tablet 1 Tab PO DAILY Clopidogrel (Clopidogrel Bisulfate) 75 Mg Tablet 1 Tab PO DAILY Vitals/I & O Vital Sign - Last 24 Hours 01/14/19 01/14/19 01/14/19 01/14/19 11:00 15:00 19:00 23:00 Temp 97.8 98.0 97.3 98.1 97.8 98.0 97.3 98.1 Pulse 63 60 71 66 Resp 18 16 18 18 B/P (MAP) 105/60 (75) 120/50 (73) 129/58 (81) 123/70 (87) Pulse Ox 92 96 95 96 O2 Delivery Room Air Room Air Room Air Room Air 01/15/19 01/15/19 01/15/19 03:00 07:00 09:59 Temp 98.3 98.1 98.3 98.1 Pulse 66 65 Resp 18 16 B/P (MAP) 127/90 (102) 134/65 (88) Pulse Ox 98 98 98 O2 Delivery Room Air Room Air Room Air DALJIT PETERSEN MD Jan 15, 2019 10:31
--- NOTE | 2019-01-15 10:47 | PDOC ---
Infectious Disease Note Subjective Subjective Doing better - constipation is better Ready to go home No F/C/S/N/V/D/SOA. rash Vital Sign Vital Signs Vital Signs Date Time Temp Pulse Resp B/P (MAP) Pulse Ox O2 Delivery O2 Flow Rate FiO2 01/15/19 09:59 98 Room Air 01/15/19 07:00 98.1 65 16 134/65 (88) 98.1 Physical Exam PHYSICAL EXAM CONSTITUTIONAL: She is sitting bed. She is cooperative. She is in no acute distress. HEENT: Pupils are status post cataract surgery. Oral cavity, pharynx is dry. NECK: Supple. Good range of motion. LUNGS: Clear to auscultation. HEART: S1, S2. ABDOMEN: Soft, nontender, no guarding, no rebound. EXTREMITIES: Without clubbing, cyanosis nor edema. NEUROLOGIC: She answers questions. PSYCHIATRIC: Affect is pleasant PIC- RUE - bruised but clean. Labs Micro Microbiology 01/11/19 Blood Culture - Preliminary, Resulted NO GROWTH AFTER 1 DAY Objective Assessment GNR UTI - POA 01/11 - h/o MDR in September recent Cipro Leukocytosis - better HTN H/o MRSA H/o CVA Plan Plan of Care Cont Meropenem but to q 6 D/w Lab margarita this am and cults should be ready today called again 10:55 this am and still checking Hold Miralax F/u labs and cults May benefit from topical vaginal estrogen Would benefit from outpatient Urology eval maybe even ART COORDINATOR D/w [facility] this am - no additional information beyond GNR D/w daughter this am - Will await until this afternoon and if cults are back will try to adjust to po. If no results will dose Fosfomycin times one. She has a F/u scheduled with primary on 01/19 and will discuss outpat Urology and Bedspread Cutter Hand eval with primary D/w nursing ESTUARDO CONTI MD Jan 15, 2019 10:46
[2019-01-15 11:00] VITALS: BP 137/73
--- NOTE | 2019-01-15 12:00 | NUR ---
SW following. Chart reviewed, discussed with RN. Pt ready to go home. Dr. Lynn wanting to check cultures this afternoon. Plan is to discharge home with [facility]. SW to fax discharge paperwork/ home health orders when available. RN notified.
[2019-01-15 15:00] VITALS: BP 122/60
[2019-01-15 19:20] VITALS: BP 121/54
[2019-01-15] MEDS: ATORVASTATIN CALCIUM 20 MG TABLET PO SCH (21:35)
[2019-01-15 23:40] VITALS: BP 138/71
[2019-01-16] MEDS: MEROPENEM 500 MG in IV NORMAL SALINE 50ML 50 ML IV SCH ×2 (00:20→06:15)
[2019-01-16 03:42] VITALS: BP 111/70
[2019-01-16 06:59] LABS: CALCIUM 9.3 mg/dL (8.5-10.1); CREATININE 0.8 mg/dL (0.6-1.0); GFR 70.1; POTASSIUM 4.2 mmol/L (3.5-5.1)
[2019-01-16 07:00] VITALS: BP 109/61
--- NOTE | 2019-01-16 09:33 | PDOC ---
PROGRESS NOTES Chief Complaint Chief Complaint impression Recuurent UTI ( ec yany) Urinary retention, Colonic diverticulosis. Acute metabolic encephalopathy, in the background of UTI< resolved POA Extensive suspected remote ischemic changes are identified within bilateral posterior MCA territories as well as the left medial occipital lobe. 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 OBESITY hypokalemia- replaced id awaits final culture 26 min pt exam, chart review, > 50% of time spent with exam, chart review, pt care coordination History of Present Illness History of Present Illness F MERREM q6 NO complaints, she is back to baseline with mentation, would like to DC home urine cx, MDR klebsiella, Earlier Entry: BAck to normal in [place] UTI on UA PLAN merrem q6 AWAIT URINE C and S PT OT existing HH on dc Ok to eat Vitals Vitals Vital Signs Date Time Temp Pulse Resp B/P (MAP) Pulse Ox O2 Delivery O2 Flow Rate FiO2 01/16/19 07:00 98.1 58 16 109/61 (77) 98 Room Air 98.1 Physical Exam Physical Exam CONSTITUTIONAL: She is sitting bed. She is cooperative. She is in no acute distress. HEENT: Pupils are status post cataract surgery. Oral cavity, pharynx is dry. NECK: Supple. Good range of motion. LUNGS: Clear to auscultation. HEART: S1, S2. ABDOMEN: Soft, nontender, no guarding, no rebound. EXTREMITIES: Without clubbing, cyanosis nor edema. NEUROLOGIC: She answers questions. PSYCHIATRIC: Affect is pleasant PIC- RUE - bruised but clean. General: Alert, Oriented X3, Cooperative, No acute distress Heart: Regular rate, Normal S1, Normal S2, No murmurs Lungs: Clear Abdomen: Normal bowel sounds, Soft, No tenderness Extremities: No clubbing, No cyanosis, No edema Skin: No rashes, No breakdown, No significant lesion Labs LABS Laboratory Tests Test 01/16/19 05:25 Sodium Level 144 mmol/L (136-145) Potassium Level 4.2 mmol/L (3.5-5.1) Chloride Level 107 mmol/L (98-107) Carbon Dioxide Level 30 mmol/L (21-32) Anion Gap 7 (6-14) Blood Urea Nitrogen 11 mg/dL (7-20) Creatinine 0.8 mg/dL (0.6-1.0) Estimated GFR (Cockcroft-Gault) 70.1 Glucose Level 93 mg/dL (70-99) Calcium Level 9.3 mg/dL (8.5-10.1) Assessment and Plan Assessmemt and Plan Problems Medical Problems: (1) Dehydration Status: Acute (2) Generalized weakness Status: Acute Comment Review of Relevant I have reviewed the following items eryn (where applicable) has been applied. Labs Laboratory Tests Test 01/16/19 05:25 Sodium Level 144 mmol/L (136-145) Potassium Level 4.2 mmol/L (3.5-5.1) Chloride Level 107 mmol/L (98-107) Carbon Dioxide Level 30 mmol/L (21-32) Anion Gap 7 (6-14) Blood Urea Nitrogen 11 mg/dL (7-20) Creatinine 0.8 mg/dL (0.6-1.0) Estimated GFR (Cockcroft-Gault) 70.1 Glucose Level 93 mg/dL (70-99) Calcium Level 9.3 mg/dL (8.5-10.1) Laboratory Tests Test 01/16/19 05:25 Sodium Level 144 mmol/L (136-145) Potassium Level 4.2 mmol/L (3.5-5.1) Chloride Level 107 mmol/L (98-107) Carbon Dioxide Level 30 mmol/L (21-32) Anion Gap 7 (6-14) Blood Urea Nitrogen 11 mg/dL (7-20) Creatinine 0.8 mg/dL (0.6-1.0) Estimated GFR (Cockcroft-Gault) 70.1 Glucose Level 93 mg/dL (70-99) Calcium Level 9.3 mg/dL (8.5-10.1) Microbiology 01/11/19 Blood Culture - Preliminary, Resulted NO GROWTH AFTER 4 DAYS 01/11/19 Urine Culture - Final, Complete 01/11/19 Urine Culture Result 1 (BONNY) - Final, Complete 01/11/19 Antimicrobic Susceptibility - Final, Complete Medications Current Medications Fentanyl Citrate (Fentanyl 2ml Vial) 25 mcg PRN Q15MIN PRN IV PAIN GREATER THAN 3/10 Last administered on 01/11/19at 13:39; Start 01/11/19 at 13:15; Stop 01/12/19 at 10:40; Status DC Sodium Chloride 1,000 ml @ 1,000 mls/hr Q1H IV Last administered on 01/11/19at 13:40; Start 01/11/19 at 13:06; Stop 01/11/19 at 14:05; Status DC Ondansetron HCl (Zofran) 4 mg 1X ONCE IV Last administered on 01/11/19at 13:39; Start 01/11/19 at 13:15; Stop 01/11/19 at 13:16; Status DC Ceftriaxone Sodium (Rocephin) 1 gm 1X ONCE IVP Last administered on 01/11/19at 15:09; Start 01/11/19 at 15:00; Stop 01/11/19 at 15:01; Status DC Sodium Chloride 1,000 ml @ 125 mls/hr Q8H IV Last administered on 01/12/19at 08:58; Start 01/11/19 at 15:24; Stop 01/12/19 at 10:40; Status DC Ceftriaxone Sodium (Rocephin) 1 gm Q24H IVP ; Start 01/12/19 at 15:00; Stop 01/11/19 at 16:05; Status DC Potassium Chloride (Klor-Con) 40 meq 1X ONCE PO Last administered on 01/11/19at 16:29; Start 01/11/19 at 16:30; Stop 01/11/19 at 16:31; Status DC Potassium Chloride (Klor-Con) 20 meq DAILYWBKFT PO Last administered on 01/15/19at 09:46; Start 01/12/19 at 08:00 Sodium Chloride 1,000 ml @ 100 mls/hr Q10H IV Last administered on 01/12/19at 02:45; Start 01/11/19 at 16:30; Stop 01/12/19 at 10:51; Status DC Acetaminophen (Tylenol) 650 mg PRN Q4HRS PRN GT TEMP OVER 100.4F OR MILD PAIN; Start 01/11/19 at 16:00 Al Hydroxide/Mg Hydroxide (Mylanta Plus Xs) 30 ml PRN DAILY PRN PO HEARTBURN / GAS; Start 01/11/19 at 16:00 Clonidine HCl (Catapres) 0.1 mg PRN Q6HRS PRN PO SBP>160 OR DBP>90; Start 01/11/19 at 16:00 Docusate Sodium (Colace) 100 mg PRN BID PRN PO CONSTIPATION; Start 01/11/19 at 16:00 Albuterol Sulfate (Ventolin Neb Soln) 2.5 mg PRN Q4HRS PRN NEB SHORTNESS OF BREATH; Start 01/11/19 at 16:00 Lorazepam (Ativan) 0.5 mg PRN Q4HRS PRN PO ANXIETY / AGITATION; Start 01/11/19 at 16:00 Enoxaparin Sodium (Lovenox 40mg Syringe) 40 mg DAILY SQ Last administered on 01/15/19 09:47; Start 01/12/19 at 09:00 Aspirin (Thu Aspirin) 325 mg DAILY PO Last administered on 01/15/19 09:45; Start 01/12/19 at 09:00 Atorvastatin Calcium (Lipitor) 20 mg QHS PO Last administered on 01/15/19 21:35; Start 01/11/19 at 21:00 Vitamin D (Vitamin D3) 2,000 unit DAILY PO Last administered on 01/15/19 09:45; Start 01/12/19 at 09:00 Clopidogrel Bisulfate (Plavix) 75 mg DAILY PO Last administered on 01/15/19 09:46; Start 01/12/19 at 09:00 Cyanocobalamin (Vitamin B-12) 1,000 mcg DAILY PO Last administered on 01/15/19 09:44; Start 01/12/19 at 09:00 Lorazepam (Ativan) 0.5 mg PRN QHS PRN PO ANXIETY / AGITATION; Start 01/11/19 at 16:00; Stop 01/12/19 at 10:46; Status DC Sertraline HCl (Zoloft) 50 mg DAILY PO Last administered on 01/15/19 09:45; Start 01/12/19 at 09:00 Famotidine (Pepcid) 20 mg QHS PO Last administered on 01/11/19 21:06; Start 01/11/19 at 21:00; Stop 01/12/19 at 08:14; Status DC Fluticasone Propionate (Flonase) 2 spray DAILY NS Last administered on 01/15/19 09:59; Start 01/12/19 at 09:00 Lactobacillus Rhamnosus (Culturelle) 1 cap BID PO Last administered on 01/15/19 21:35; Start 01/11/19 at 21:00 Non-Formulary Medication (Melatonin ) 1 tab QHS PO ; Start 01/11/19 at 21:00; Status UNV Meropenem 500 mg/ Sodium Chloride 50 ml @ 100 mls/hr Q8HRS IV Last admi nistered on 01/12/19at 05:08; Start 01/11/19 at 17:00; Stop 01/12/19 at 10:42; Status DC Acetaminophen (Tylenol) 500 mg PRN Q6HRS PRN PO HEADACHE/ TEMP; Start 01/12/19 at 08:15 Acetaminophen/ Codeine Phosphate (Tylenol #3) 1 tab PRN Q6HRS PRN PO PAIN MILD TO MOD Last administered on 01/15/19 09:59; Start 01/12/19 at 08:15 Temazepam (Restoril) 7.5 mg PRN QHS PRN PO INSOMNIA; Start 01/12/19 at 08:15 Ondansetron HCl (Zofran) 4 mg PRN Q6HRS PRN IVP NAUSEA/VOMITING; Start 01/12/19 at 08:15 Morphine Sulfate (Morphine Sulfate) 1 mg PRN Q2HR PRN IV PAIN; Start 01/12/19 at 08:15 Buspirone HCl (Buspar) 5 mg BID PO Last administered on 01/15/19 21:35; Start 01/12/19 at 09:00 Pantoprazole Sodium (Protonix) 40 mg DAILYAC PO Last administered on 01/15/19 06:22; Start 01/12/19 at 09:00 Non-Formulary Medication (Pravastatin Sodium ) 5 mg DAILY PO ; Start 01/12/19 at 09:00; Stop 01/12/19 at 08:13; Status DC Folic Acid (Folic Acid) 1 mg DAILY PO Last administered on 01/15/19 09:45; Start 01/12/19 at 09:00 Meropenem 500 mg/ Sodium Chloride 50 ml @ 100 mls/hr Q6HRS IV Last administered on 01/16/19 06:15; Start 01/12/19 at 12:00 Polyethylene Glycol (miraLAX PACKET) 17 gm DAILY PO Last administered on 01/13/19at 13:45; Start 01/13/19 at 11:00; Stop 01/14/19 at 10:45; Status DC Active Scripts Active Cefuroxime (Cefuroxime Axetil) 250 Mg Tablet 250 Mg PO 3X/WEEK 30 Days MWF weekly for UTI prevention Aspirin 325 Mg Tablet 1 Tab PO DAILY Reported Pravastatin Sodium 10 Mg Tablet 5 Mg PO DAILY Omeprazole 20 Mg Tablet.dr 1 Tab PO DAILY [folic acid] 1 Mg DAILY Buspirone Hcl 5 Mg Tablet 1 Tab PO BID Acidophilus (Lactobacillus Acidophilus) 1 Each Capsule 1 Each PO DAILY Vitamin D3 (Cholecalciferol (Vitamin D3)) 1,000 Unit Tablet 2 Tab PO DAILY Vitamin B-12 (Cyanocobalamin (Vitamin B-12)) 1,000 Mcg Tablet 1 Tab PO DAILY Melatonin 3 Mg Tablet 1 Tab PO QHS Zoloft (Sertraline Hcl) 25 Mg Tablet 1 Tab PO DAILY Clopidogrel (Clopidogrel Bisulfate) 75 Mg Tablet 1 Tab PO DAILY Vitals/I & O Vital Sign - Last 24 Hours 01/15/19 01/15/19 01/15/19 01/15/19 09:59 11:00 11:49 15:00 Temp 98.0 97.9 98.0 97.9 Pulse 68 60 Resp 18 16 B/P (MAP) 137/73 (94) 122/60 (80) Pulse Ox 98 95 98 95 O2 Delivery Room Air Room Air Room Air Room Air 01/15/19 01/15/19 01/15/19 01/16/19 19:20 20:00 23:40 03:42 Temp 97.9 98.8 97.3 97.9 98.8 97.3 Pulse 65 60 66 Resp 18 18 18 B/P (MAP) 121/54 (76) 138/71 (93) 111/70 (84) Pulse Ox 94 93 O2 Delivery Room Air Room Air Room Air 01/16/19 07:00 Temp 98.1 98.1 Pulse 58 Resp 16 B/P (MAP) 109/61 (77) Pulse Ox 98 O2 Delivery Room Air Intake and Output 01/15/19 01/15/19 01/16/19 15:00 23:00 07:00 Intake Total 360 ml 320 ml 360 ml Balance 360 ml 320 ml 360 ml TALON CONTEH MD Jan 16, 2019 09:33
[2019-01-16] MEDS ORDERED: FOSF3PAC PO (09:40)
--- NOTE | 2019-01-16 09:41 | SNU/HH DC ---
DISCHARGE WITH HOME HEALTH DISCHARGE INFORMATION: Discharge Date: Jan 16, 2019 Final Diagnosis: acute encephalopathy UTI weakness and debility Problems Medical Problems: (1) Dehydration Status: Acute (2) Generalized weakness Status: Acute Condition on Discharge: Stable CODE STATUS: Code Status: Full HOME HEALTH: Face to Face: I certify this patient is under my care and that I had a face to face encounter that meets the physician face to face encounter requirements with this patient on 01/16 RN For Eval/Treatment: Yes Physical Therapy For: Evalulation/Treatment Occupational Therapy For: Evaluation/Treatment Pt Meets Homebound Status: Extreme weakness w/ amb., Fatigue w/ amb., Limited distance walking POST DISCHARGE ORDERS: Activity Instructions for Disc: Activity as tolerated Weight Bearing Status after Di: No restrictions, As tolerated DIET AFTER DISCHARGE: Regular CHECKS AFTER DISCHARGE: Checks after discharge: Check blood press - daily, Check your Temp as needed, Weigh Yourself Daily FOLLOW-UP: Follow up with: primary care TREATMENT/EQUIPMENT ORDERS: Adaptive Equipment Issued: Front wheeled walker, Raised toilet seat, Wheelchair CERTIFICATION STATEMENT: Certification Statement: Certification Statement: Based on the above finding, I certify that this patient is confined to the home and needs intermittent long term care, physical therapy and/or speech therapy, or continues to need occupational therapy.~ This patient is under my care, and I have initiated the establishment of the plan of care.~ This patient will be followed by myself or a community physician who will periodically review the plan of care. Home Meds Active Scripts Fosfomycin Tromethamine (MONUROL) 3 Gm Packet, 3 GM PO every other day for resistant UTI, #2 PKT start 01/18 Prov:TALON CONTEH MD 01/16/19 Aspirin (ASPIRIN) 325 Mg Tablet, 1 TAB PO DAILY, #30 TAB 5 Refills Prov:TALON CONTEH MD 03/26/16 Reported Medications Pravastatin Sodium (PRAVASTATIN SODIUM) 10 Mg Tablet, 5 MG PO DAILY for high cholesterol, #30 TAB 5 Refills 01/11/19 Omeprazole (OMEPRAZOLE) 20 Mg Tablet.dr, 1 TAB PO DAILY for gerd, #90 TAB 1 Refill 01/11/19 [folic acid] No Conflict Check, 1 MG DAILY for supplement 01/11/19 Buspirone Hcl (BUSPIRONE HCL) 5 Mg Tablet, 1 TAB PO BID for depression, #60 TAB 2 Refills 01/11/19 Lactobacillus Acidophilus (ACIDOPHILUS) 1 Each Capsule, 1 EACH PO DAILY for supplement, CAP 09/25/18 Cholecalciferol (Vitamin D3) (VITAMIN D3) 1,000 Unit Tablet, 2 TAB PO DAILY for supplement, #30 TAB 5 Refills 09/25/18 Cyanocobalamin (Vitamin B-12) (VITAMIN B-12) 1,000 Mcg Tablet, 1 TAB PO DAILY for supplement, #30 TAB 2 Refills 09/25/18 Melatonin (MELATONIN) 3 Mg Tablet, 1 TAB PO QHS, #30 TAB 2 Refills 02/28/17 Sertraline Hcl (ZOLOFT) 25 Mg Tablet, 1 TAB PO DAILY, #30 TAB 2 Refills 02/28/17 Clopidogrel Bisulfate (CLOPIDOGREL) 75 Mg Tablet, 1 TAB PO DAILY, #90 TAB 1 Refill 02/28/17 Discontinued Scripts Cefuroxime Axetil (CEFUROXIME) 250 Mg Tablet, 250 MG PO 3X/WEEK for UTI ppx for 30 Days, #10 TAB 2 Refills MWF weekly for UTI prevention Prov:LEATHA ROSA MD 09/27/18 TALON CONTEH MD Jan 16, 2019 09:41
[2019-01-16] MEDS ORDERED: FOSFOMYCIN TROMETHAMINE 3 GM PACKET PO ONE (09:45)
[2019-01-16] MEDS: FLUTICASONE 50MCG/NASAL SPRAY 16GM BOTTLE. NS SCH (10:00)
[2019-01-16] MEDS: ASPIRIN 325 MG TABLET PO SCH (10:02)
[2019-01-16] MEDS: CYANOCOBALAMIN (VITAMIN B-12) 1,000 MCG TABLET. PO SCH (10:02)
[2019-01-16] MEDS: CLOPIDOGREL BISULFATE 75 MG TABLET PO SCH (10:02)
[2019-01-16] MEDS: SERTRALINE 50 MG TABLET. PO SCH (10:02)
[2019-01-16] MEDS: ENOXAPARIN 40 MG/0.4 ML SYRINGE. SQ SCH (10:02)
[2019-01-16] MEDS: POTASSIUM CHLORIDE 20 MEQ TABLET.ER. PO SCH (10:03)
[2019-01-16] MEDS: CHOLECALCIFEROL (VITAMIN D3) 1,000 UNIT TABLET PO SCH (10:06)
[2019-01-16] MEDS: PANTOPRAZOLE 40 MG TABLET.DR. PO SCH (10:06)
[2019-01-16] MEDS: FOLIC ACID 1 MG TABLET. PO SCH (10:06)
[2019-01-16] MEDS: busPIRone 5 MG TABLET. PO SCH (10:07)
[2019-01-16] MEDS: LACTOBACILLUS RHAMNOSUS GG 1 CAPSULE. PO SCH (10:09)
[2019-01-16 11:00] VITALS: BP 141/72
--- NOTE | 2019-01-16 11:14 | NUR ---
SS following up with discharge planning. Discharge orders received for home healthcare. Pt requesting [facility], ; fax [phone]. SS awaiting ID to see pt to assess needs for abx. Face sheet phoned and faxed to [facility] for benefit check in the event that IV abx may be needed. SS was informed that pt has no insurance benefits for home IV abx and that if needed would be responsible for 100% of the cost. SS notified pt's RN that if IV abx are needed pt will need outpatient services and if so would not be able to get home healthcare. SS awaiting follow up from ID and will proceed accordingly.
--- NOTE | 2019-01-16 11:43 | NUR ---
SS following up with discharge planning. SS received notification that pt will go home on oral abx. SS phoned and faxed discharge orders and referral to [facility], ; fax [phone]. Pt's RN notified.
--- NOTE | 2019-01-16 11:47 | PDOC ---
Infectious Disease Note Subjective Subjective Doing better - Ready to go home No F/C/S/N/V/D/SOA. rash ROS ROS o/w neg Vital Sign Vital Signs Vital Signs Date Time Temp Pulse Resp B/P (MAP) Pulse Ox O2 Delivery O2 Flow Rate FiO2 01/16/19 07:00 98.1 58 16 109/61 (77) 98 Room Air 98.1 Physical Exam PHYSICAL EXAM CONSTITUTIONAL: She is in a wheelchair She is cooperative. She is in no acute distress. HEENT: Pupils are status post cataract surgery. Oral cavity, pharynx is dry. NECK: Supple. Good range of motion. LUNGS: Clear to auscultation. HEART: S1, S2. ABDOMEN: Soft, nontender, no guarding, no rebound. EXTREMITIES: Without clubbing, cyanosis nor edema. NEUROLOGIC: She answers questions. PSYCHIATRIC: Affect is pleasant PIC- RUE - bruised but clean. Labs Lab Laboratory Tests Test 01/16/19 05:25 Sodium Level 144 mmol/L (136-145) Potassium Level 4.2 mmol/L (3.5-5.1) Chloride Level 107 mmol/L (98-107) Carbon Dioxide Level 30 mmol/L (21-32) Anion Gap 7 (6-14) Blood Urea Nitrogen 11 mg/dL (7-20) Creatinine 0.8 mg/dL (0.6-1.0) Estimated GFR (Cockcroft-Gault) 70.1 Glucose Level 93 mg/dL (70-99) Calcium Level 9.3 mg/dL (8.5-10.1) Micro Klebsiella pneumoniae Greater than 100,000 colony forming units per mL Performed at: [address] [id number] Jack Frame Tender: CELSO Nieto MD, Phone: [phone] Greater than 100,000 colony forming units per mL Susceptibility profile is consistent with a probable ESBL. Performed at: [address] [id number] Jack Frame Tender: CELSO Nieto MD, Phone: [phone] Greater than 100,000 colony forming units per mL Multi-Drug Resistant Organism Susceptibility profile is consistent with a probable ESBL. ANTIMICROBIAL SUSCEPTIBILITY Final Comment S = Susceptible; I = Intermediate; R = Resistant P = Positive; N = Negative MICS are expressed in micrograms per mL Antibiotic RSLT#1 RSLT#2 RSLT#3 RSLT#4 Amikacin S<=2 Amoxicillin/Clavulanic Acid I =16 Ampicillin R>=32 Ampicillin/Sulbactam R>=32 Cefazolin R>=64 Cefepime R>=32 Cefotaxime R>=64 Ceftazidime R =16 Ceftriaxone R>=64 Cefuroxime R>=64 Ciprofloxacin S =1 CONTINUED ON NEXT PAGE RUN DATE: 01/16/19 PAGE 2 RUN TIME: 911 [facility] [address] [place] [address] Mahendra Clay M.D., School Curriculum Developer SPEC: [id number] PATIENT: DONY MORAN [id number] (Continued) -------- ---- Procedure Result ANTIMICROBIAL SUSCEPTIBILITY Final (continued) Ertapenem S<=0.12 Gentamicin S<=1 Imipenem S<=0.25 Levofloxacin S =1 Meropenem S<=0.25 Nitrofurantoin R>=512 Piperacillin/Tazobactam I =32 Tetracycline R>=16 Tigecycline S<=0.5 Tobramycin I =8 Trimethoprim/Sulfa R>=320 Microbiology 01/11/19 Blood Culture - Preliminary, Resulted NO GROWTH AFTER 1 DAY Objective Assessment MDR Klebsiell UTI - POA 01/11 - h/o MDR in September recent Cipro Leukocytosis - better HTN H/o MRSA H/o CVA Plan Plan of Care Discont Meropenem and dose Invanz times one F/u labs and cults May benefit from topical vaginal estrogen Would benefit from outpatient Urology eval maybe even ORACLE WEBCENTER CONSULTANT D/w daughter this am - Explained rationale Invanz times one Fosfomycin times one already dosed. She has a F/u scheduled with primary on 01/19 and will discuss outpat Urology and Market Research Manager eval with primary D/w nursing ESTUARDO CONTI MD Jan 16, 2019 11:47
[2019-01-16] MEDS ORDERED: ERTAPENEM 1GM IVPB (GENERIC) 50 ML IV ONE (12:00)
--- NOTE | 2019-01-16 14:39 | NUR ---
Discharge Note: DAVID MORAN Discharge instructions and discharge home medications reviewed with Patient and a copy given. All questions have been answered and understanding verbalized. The following instructions and handouts were given: Follow up 01-19-2019 with PCP Discontinued lines and drains: Iv in right hand removed, catheter tip intact. Patient discharged to home with home health via WC Patient left with all belongings and left with daughter in POV
--- NOTE | 2019-01-16 15:44 | PDOC3 ---
Discharge Summary Visit Information Date of Admission: Jan 11, 2019 Date of Discharge: Jan 16, 2019 Final Diagnosis Recuurent UTI ( ec yany) Urinary retention, Colonic diverticulosis. Acute metabolic encephalopathy, in the background of UTI< resolved POA Extensive suspected remote ischemic changes are identified within bilateral posterior MCA territories as well as the left medial occipital lobe. 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 OBESITY hypokalemia- Problems Medical Problems: (1) Dehydration Status: Acute (2) Generalized weakness Status: Acute Brief Hospital Course Allergies Allergies Coded Allergies Type Severity Reaction Last Updated Verified zolpidem Allergy Intermediate 03/04/17 Yes I S O L A T I O N *CONTACT* Allergy Unknown 09/26/18 Yes Vital Signs Vital Signs Date Time Temp Pulse Resp B/P (MAP) Pulse Ox O2 Delivery O2 Flow Rate FiO2 01/16/19 11:00 98.2 58 16 141/72 (95) 96 Room Air 98.2 Lab Results Laboratory Tests Test 01/16/19 05:25 Sodium Level 144 mmol/L (136-145) Potassium Level 4.2 mmol/L (3.5-5.1) Chloride Level 107 mmol/L (98-107) Carbon Dioxide Level 30 mmol/L (21-32) Anion Gap 7 (6-14) Blood Urea Nitrogen 11 mg/dL (7-20) Creatinine 0.8 mg/dL (0.6-1.0) Estimated GFR (Cockcroft-Gault) 70.1 Glucose Level 93 mg/dL (70-99) Calcium Level 9.3 mg/dL (8.5-10.1) Laboratory Tests Test 01/16/19 05:25 Sodium Level 144 mmol/L (136-145) Potassium Level 4.2 mmol/L (3.5-5.1) Chloride Level 107 mmol/L (98-107) Carbon Dioxide Level 30 mmol/L (21-32) Anion Gap 7 (6-14) Blood Urea Nitrogen 11 mg/dL (7-20) Creatinine 0.8 mg/dL (0.6-1.0) Estimated GFR (Cockcroft-Gault) 70.1 Glucose Level 93 mg/dL (70-99) Calcium Level 9.3 mg/dL (8.5-10.1) Brief Hospital Course Ms. Maradiaga is a 73 old f, admit with sepsis, UTI, illness, confusion, mult prior UTI, urine cx, MDR klebsiella, merrm, then DC on fosphomycin, ESBL klebsiella f.u uro or grade tamper for recurrent uti Discharge Information Condition at Discharge: Improved Follow Up: Weeks Disposition/Orders: D/C to Home w/ HH Scheduled Aspirin (Aspirin) 325 Mg Tablet, 1 TAB PO DAILY, #30 Ref 5 Prescribed by: TALON CONTEH on 03/26/16 1538 Last Action: Reviewed on 01/11/192021 by Radha Smart Buspirone Hcl (Buspirone Hcl) 5 Mg Tablet, 1 TAB PO BID for depression, #60 Ref 2 (Reported) Entered as Reported by: Radha Smart on 01/11/192020 Last Taken: 5 mg BID on Unknown Date & Time Last Action: Continued on 01/12/19 0804 by TRINA GREEN Cholecalciferol (Vitamin D3) (Vitamin D3) 1,000 Unit Tablet, 2 TAB PO DAILY for supplement, #30 Ref 5 (Reported) Entered as Reported by: ILIANA LANDAVERDE on 09/25/18 1208 Last Action: Reviewed on 01/11/192021 by Radha Smart Clopidogrel Bisulfate (Clopidogrel) 75 Mg Tablet, 1 TAB PO DAILY, #90 Ref 1 (Reported) Entered as Reported by: Kiel Bhakta on 02/28/17 1751 Last Action: Reviewed on 01/11/192021 by Radha Smart Cyanocobalamin (Vitamin B-12) (Vitamin B-12) 1,000 Mcg Tablet, 1 TAB PO DAILY for supplement, #30 Ref 2 (Reported) Entered as Reported by: ILIANA LANDAVERDE on 09/25/18 1207 Last Action: Reviewed on 01/11/192021 by Radha Smart Fosfomycin Tromethamine (Monurol) 3 Gm Packet, 3 GM PO every other day for resistant UTI, #2 start 01/18 Prescribed by: TALON CONTEH on 01/16/19 0940 Lactobacillus Acidophilus (Acidophilus) 1 Each Capsule, 1 EACH PO DAILY for supplement, (Reported) Entered as Reported by: ILIANA LANDAVERDE on 09/25/18 1210 Last Action: Reviewed on 01/11/192021 by Radha Berry Melatonin (Melatonin) 3 Mg Tablet, 1 TAB PO QHS, #30 Ref 2 (Reported) Entered as Reported by: Kiel Bhakta on 02/28/171753 Last Action: Reviewed on 01/11/192021 by Radha Smart Omeprazole (Omeprazole) 20 Mg Tablet.dr, 1 TAB PO DAILY for gerd, #90 Ref 1 (Reported) Entered as Reported by: Radha Smart on 01/11/192020 Last Taken: 20 mg daily on Unknown Date & Time Last Action: Converted on 01/12/19 08 by TRINA GREEN Pravastatin Sodium (Pravastatin Sodium) 10 Mg Tablet, 5 MG PO DAILY for high cholesterol, #30 Ref 5 (Reported) Entered as Reported by: Radha Smart on 01/11/192020 Last Taken: 5 mg daily on Unknown Date & Time Last Action: Converted on 01/12/19803 by TRINA GREEN Sertraline Hcl (Zoloft) 25 Mg Tablet, 1 TAB PO DAILY, #30 Ref 2 (Reported) Entered as Reported by: Kiel Bhakta on 02/28/171751 Last Action: Reviewed on 01/12/19803 by TRINA GREEN [folic acid] , 1 MG DAILY for supplement, (Reported) Entered as Reported by: Radha Smart on 01/11/192020 Last Taken: 1 mg daily on Unknown Date & Time Last Action: Converted on 01/12/19 08 by TRINA GREEN Discontinued Medications Cefuroxime Axetil (Cefuroxime) 250 Mg Tablet, 250 MG PO 3X/WEEK for UTI ppx for 30 Days, #10 Ref 2 MWF weekly for UTI prevention Prescribed by: LEATHA ROSA MD on 09/27/18 1312 Last Action: Reviewed on 01/11/192021 by Radha Smart Patient Instructions Patient Instructions > 30 min face to face TALON CONTEH MD Jan 16, 2019 15:44
== END 2019-01-16 14:20 | disposition home health service (06) | DRG 871 ==
LOC: ER 12:01 → 4 NORTH 15:23
PROVIDERS: ADMIT Family Medicine; ATTEND Family Medicine
DX: A41.9 Sepsis, unspecified organism (principal); G93.41 Metabolic encephalopathy; E43 Unspecified severe protein-calorie malnutrition; N39.0 Urinary tract infection, site not specified; I69.354 Hemiplegia and hemiparesis following cerebral infarction affecting left non-dominant side; Z16.24 Resistance to multiple antibiotics; Z16.12 Extended spectrum beta lactamase (ESBL) resistance; K57.30 Diverticulosis of large intestine without perforation or abscess without bleeding; K21.9 Gastro-esophageal reflux disease without esophagitis; E66.9 Obesity, unspecified; E86.0 Dehydration; E87.6 Hypokalemia; B96.1 Klebsiella pneumoniae [K. pneumoniae] as the cause of diseases classified elsewhere; I10 Essential (primary) hypertension; E78.5 Hyperlipidemia, unspecified; G89.29 Other chronic pain; M47.816 Spondylosis without myelopathy or radiculopathy, lumbar region; F32.9 Major depressive disorder, single episode, unspecified; K59.00 Constipation, unspecified; B96.89 Other specified bacterial agents as the cause of diseases classified elsewhere; R91.1 Solitary pulmonary nodule; R32 Unspecified urinary incontinence; F41.9 Anxiety disorder, unspecified; Z98.51 Tubal ligation status; Z82.49 Family history of ischemic heart disease and other diseases of the circulatory system; Z90.49 Acquired absence of other specified parts of digestive tract; Z88.8 Allergy status to other drugs, medicaments and biological substances; Z91.041 Radiographic dye allergy status; Z68.32 Body mass index [BMI] 32.0-32.9, adult; Z87.440 Personal history of urinary (tract) infections
CPT/HCPCS: 36415; 74176; 80048; 80053; 81001; 83690; 85025; 87040; 87086; 87641; 96361; 96374; 96375; J0696; J1335; J1650; J2185; J2405; J3010; J7030; 92610; 97116; 97530; 99285-25; G0378